=== PATIENT | female | born 1995 | race Caucasian/White ===

== ENCOUNTER 2017-06-06 10:25 | Inpatient (IN) ==
[2017-06-06] MEDS ORDERED: Pantoprazole 40 MG VIAL IVP ONE (11:12)
[2017-06-06] MEDS ORDERED: *HR* HYDROmorphone (PF) 1 MG/ML SYRINGE IVP ONE ×3 (11:14→18:43)
[2017-06-06] MEDS ORDERED: methylPREDNISolone 125 MG/2 ML VIAL IVP ONE (11:14)
[2017-06-06] MEDS ORDERED: 0.9 % Sodium Chloride 1,000 ML IVC ONE (11:14)
[2017-06-06] MEDS ORDERED: Ondansetron 4 MG/2 ML VIAL IVP PRN ×3 (11:15→19:30)
--- NOTE | 2017-06-06 11:23 | Emergency Department Note ---
Disposition Clinical Impression: Pleuritic chest pain, RUQ abdominal pain, Splenic infarction GI bleed Qualifiers: GI bleed type/associated pathology: unspecified gastrointestinal hemorrhage type Qualified Code(s): K92.2 - Gastrointestinal hemorrhage, unspecified Disposition: Admitted As Inpatient Condition: Serious Time of Disposition: 20:42 Chest Pain HPI - General Chief Complaint: ED Chest Pain Stated Complaint: chest/abd pain Time Seen by Provider: 06/06/17 10:57 Source: patient Limitations: no limitations Vital Signs Reviewed: Yes Nursing Notes Reviewed: Yes - History of Present Illness HPI Narrative: Patient's a 21-year-old female history of antiphospholipid syndrome, previous DVTs, and has an IVC filter in place back in 2013. Patient has IVC filter replacement secondary to complete blockage of the first filter. Patient has of right upper quadrant pain difficulty breathing pain with inspiration, coffee- ground emesis. Patient states she had the same symptoms back in 2013 when her filter was clogged up. Patient has nausea vomiting and has not eaten in 3 days. Patient vomiting up to 4 times a day. Patient reports no bloody stools dark tarry stools. Patient denies any urinary symptoms of dysuria Severity scale (1-10): 9 - Related Data Home Medications Medication Instructions Recorded Confirmed Albuterol Sulfate [Albuterol 2 puff IH Q6HR PRN 03/18/17 06/06/17 Inhaler] Levothyroxine [Levothyroxine 137 mcg PO HS 03/18/17 06/06/17 Sodium] Paroxetine HCl [Paxil] 40 mg PO HS 03/18/17 06/06/17 Quetiapine Fumarate [Seroquel] 1,200 mg PO HS 03/18/17 06/06/17 Warfarin [Coumadin] 5 mg PO HS 03/18/17 06/06/17 Zolpidem [Ambien] 10 mg PO HS 03/18/17 06/06/17 cloNIDine HCl [CloNIDine HCl] 0.1 mg PO HS 03/18/17 06/06/17 Previous Rx's Medication Instructions Recorded Pantoprazole Sodium [Protonix] 20 mg PO DAILY #30 tab 04/05/17 Allergies Allergy/AdvReac Type Severity Reaction Status Date / Time Enoxaparin [From Lovenox] Allergy Rash Verified 06/06/17 10:35 fentanyl Allergy Itching Verified 06/06/17 10:35 fondaparinux [From Arixtra] Allergy Anaphylaxis Verified 06/06/17 10:35 hydrocodone Allergy Anaphylaxis Verified 06/06/17 10:35 ketorolac [From Toradol] Allergy Anaphylaxis Verified 06/06/17 10:35 Oxycodone Allergy Anaphylaxis Verified 06/06/17 10:35 tramadol Allergy Anaphylaxis Verified 06/06/17 10:35 Review of Systems: Patient admits to lightheadedness nausea, vomiting no diarrhea. Patient denies falls, loss of consciousness, vision changes All systems ED: reviewed and negative except as stated. 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 Patient sitting up in bed and able to speak without any conversational dyspnea. Patient is on for diaphoretic - General Limitations: no limitations General appearance: alert, in no apparent distress - Head Head exam: atraumatic, normocephalic, normal inspection - Eye Eye exam: Present: normal appearance, PERRL, EOMI - ENT ENT exam: normal exam, normal oropharynx, mucous membranes moist - Neck Neck exam: Present: normal inspection, full ROM, trachea midline - Chest Chest inspection: Present: normal inspection, symmetric chest wall rise - Respiratory Respiratory exam: Present: normal lung sounds bilaterally - Cardiovascular Cardiovascular exam: Present: normal rhythm, tachycardia, normal heart sounds - Abdominal Exam Abdominal exam: Present: soft, tenderness, Henry's sign. Absent: distention, guarding, rebound, rigidity Abdominal tenderness: Present: RUQ - Extremities Exam Extremities exam: Present: normal inspection, full ROM. Absent: tenderness, pedal edema - Expanded Lower Extremity Exam Hip/Pelvis exam: Present: normal inspection, full ROM Upper leg exam: Present: normal inspection, full ROM Knee exam: Present: normal inspection, full ROM Lower leg exam: Present: normal inspection, full ROM Ankle exam: Present: normal inspection, full ROM Foot/toe exam: Present: normal inspection, full ROM Neurovascular/Tendon exam: Absent: motor deficit, sensory deficit, tendon deficit - Back Exam Back exam: Present: normal inspection, full ROM. Absent: tenderness, CVA tenderness (R), CVA tenderness (L), vertebral tenderness - Neurological Exam Neurological exam: Present: alert, oriented X3, CN II-XII intact - Psychiatric Psychiatric exam: Present: normal affect, normal mood - Skin Skin exam: Present: warm, dry, intact, normal color. Absent: rash, cyanosis, diaphoresis, erythema, pallor, mottled Course - Reevaluation(s) Reevaluation #1: CTA chest, CT abdomen and pelvis, CBC, BMP, LFTs, lipase, lactate ordered type and screen ordered IV normal saline, Zofran and Dilaudid and 40 mg protonics Time: 11:14 Reevaluation #2: PICC line ordered. Patient refused intramuscular medications. She states she was with her PICC line. Patient's vital signs are stable. Mildly tachycardic just over 100. Time: 13:42 Reevaluation #3: still awaiting callback from PICC team before patient is able to get the necessary advanced imaging CTA chest and abdomen Time: 14:40 Additional Reevaluation(s): 1506: PICC team called back finally and states they will be down in 15 min. 1605: Patient finally has PICC line in left upper arm medial aspect. Patient's med service started. Patient's IV fluids were started. Patient will be going on the CT shortly - Consultations Consultation #1: Accepted for Admission by Sridevi Mancuso the hospitalist Time: 18:30 Vital Signs Temperature 98.1 F 06/06/17 10:28 Pulse Rate 106 06/06/17 10:28 Respiratory Rate 16 06/06/17 10:28 Blood Pressure 121/79 06/06/17 10:28 O2 Sat by Pulse Oximetry 98 06/06/17 10:28 Temperature 98.1 F 06/06/17 10:28 Pulse Rate 102 06/06/17 20:48 Respiratory Rate 16 06/06/17 20:48 Blood Pressure 142/78 06/06/17 20:48 O2 Sat by Pulse Oximetry 98 06/06/17 20:48 Oxygen Delivery Oxygen Delivery Room Air Chest Pain - MDM Narrative Medical decision making narrative: Differential for PE, PTX, right upper quadrant pain for cholecystitis, PUD, IVC filter clog. CT abdomen and pelvis, CT of chest was completed. No PE. CT and pelvis showed splenic infarct. Patient has intractable abdominal pain. Patient's had multiple bouts of Dilaudid 1 mg doses and has brought her pain only down to 8/ 10. Patient has nausea resistant to Zofran was placed on Phenergan. Patient is subtherapeutic on Coumadin. Heparin bolus ordered and drip started. Patient accepts this is an for admission. Patient is accepted for admission - Differential Diagnosis Likely: atypical chest pain, chest pain - Lab Data Lab results reviewed: Yes I reviewed the patient's lab results. Lab results narrative: Short CBC 06/06/17 Range/Units 12:44 WBC 4.1 L (4.3-11.1) K/mcL Hgb 10.0 L (11.5-15.4) g/dL Hct 31.9 L (35.3-44.9) % Plt Count 82 L (140-400) K/mcL Neutrophils # 2.7 (1.6-8.9) K/mcL BMP 06/06/17 Range/Units 12:44 Sodium 137 (136-145) mEq/L Potassium 3.7 (3.5-4.5) mEq/L Chloride 107 (98-109) mEq/L Carbon Dioxide 18 L (19-29) mEq/L BUN 8 (7-20) mg/dL Creatinine 0.82 (0.57-1.11) mg/dL Glucose 89 (70-99) mg/dL Calcium 9.4 (8.6-10.8) mg/dL Cardiac Enzymes 06/06/17 Range/Units 12:44 Troponin I 0.00 (0-0.03) ng/mL Liver Function 06/06/17 Range/Units 12:44 Total Bilirubin 0.3 (0.2-1.2) mg/dL Direct Bilirubin < 0.1 (0.0-0.5) mg/dL AST 15 (5-34) Units/L ALT 16 (0-55) Units/L Alkaline Phosphatase 75 (38-126) Units/L Albumin 3.7 (3.5-5.0) g/dL Urine 06/06/17 Range/Units 11:31 Urine Color Yellow (Yellow) Urine Clarity Cloudy A (Clear) Urine pH 5.5 (5.0-8.0) pH Units Ur Specific [place] 1.024 (1.010-1.025) Urine Protein Trace (Neg-Trace) mg/dL Urine Glucose (UA) Normal (Normal) mg/dL Result diagrams: 06/06/17 12:44 06/06/17 12:44 Lab Results 06/06/17 06/06/17 06/06/17 Range/Units 11:31 11:31 12:44 WBC (4.3-11.1) K/mcL RBC (3.82-4.97) M/mcL Hgb (11.5-15.4) g/dL Hct (35.3-44.9) % MCV (83.0-100.0) fL MCH (28.0-33.3) pg MCHC (31.6-35.5) g/dL RDW (11.5-14.5) % Plt Count (140-400) K/mcL MPV (9.4-12.4) fL Immature Gran % (0-4) % Seg Neutrophils % % Lymphocytes % % Monocytes % % Eosinophils % % Basophils % % Neutrophils # (1.6-8.9) K/mcL Lymphocytes # (0.6-4.6) K/mcL Monocytes # (0.0-1.3) K/mcL Eosinophils # (0.0-0.6) K/mcL Basophils # (0.0-0.2) K/mcL PT 12.9 H (9.4-12.1) Seconds INR 1.2 APTT 44.9 H (26.0-36.0) Seconds Sodium (136-145) mEq/L Potassium (3.5-4.5) mEq/L Chloride (98-109) mEq/L Carbon Dioxide (19-29) mEq/L BUN (7-20) mg/dL Creatinine (0.57-1.11) mg/dL Est GFR ( Amer) (> 60) Est GFR (Non-Af Amer) (> 60) BUN/Creatinine Ratio (6-26) Glucose (70-99) mg/dL Calculated Osmolality (280-300) Calcium (8.6-10.8) mg/dL Total Bilirubin (0.2-1.2) mg/dL Direct Bilirubin (0.0-0.5) mg/dL Indirect Bilirubin (0.0-1.2) mg/dL AST (5-34) Units/L ALT (0-55) Units/L Alkaline Phosphatase (38-126) Units/L Troponin I (0-0.03) ng/mL Serum Total Protein (6.0-8.3) g/dL Albumin (3.5-5.0) g/dL Globulin (2.4-3.5) g/dL Albumin/Globulin Ratio (1.1-2.2) Lipase (8-78) Units/L Urine Color Yellow (Yellow) Urine Clarity Cloudy A (Clear) Urine pH 5.5 (5.0-8.0) pH Units Ur Specific [place] 1.024 (1.010-1.025) Urine Protein Trace (Neg-Trace) mg/dL Urine Glucose (UA) Normal (Normal) mg/dL Urine Ketones Negative (Negative) mg/dL Urine Blood Large H (Negative) Urine Nitrite Negative (Negative) Urine Bilirubin Negative (Negative) Urine Urobilinogen Normal (Normal) mg/dL Ur Leukocyte Esterase Negative (Negative) Urine Microscopic RBC 0-3 (0-3) per hpf Urine Microscopic WBC 3-5 H (0-3) per hpf Ur Squamous Epith Cells Many H (None-Few) per lpf Urine Bacteria Moderate H (None-Few) per hpf Hyaline Casts None Seen (None-Few) per lpf Ur Culture Indicated? NO (NO) Urine Test Negative (Negative) Blood Type Antibody Screen 06/06/17 06/06/17 06/06/17 Range/Units 12:44 12:44 12:44 WBC 4.1 L (4.3-11.1) K/mcL RBC 4.09 (3.82-4.97) M/mcL Hgb 10.0 L (11.5-15.4) g/dL Hct 31.9 L (35.3-44.9) % MCV 78.0 L (83.0-100.0) fL MCH 24.4 L (28.0-33.3) pg MCHC 31.3 L (31.6-35.5) g/dL RDW 15.7 H (11.5-14.5) % Plt Count 82 L (140-400) K/mcL MPV 10.0 (9.4-12.4) fL Immature Gran % 0.5 (0-4) % Seg Neutrophils % 66.6 % Lymphocytes % 27.5 % Monocytes % 5.4 % Eosinophils % 0.0 % Basophils % 0.0 % Neutrophils # 2.7 (1.6-8.9) K/mcL Lymphocytes # 1.1 (0.6-4.6) K/mcL Monocytes # 0.2 (0.0-1.3) K/mcL Eosinophils # 0.0 (0.0-0.6) K/mcL Basophils # 0.0 (0.0-0.2) K/mcL PT (9.4-12.1) Seconds INR APTT (26.0-36.0) Seconds Sodium 137 (136-145) mEq/L Potassium 3.7 (3.5-4.5) mEq/L Chloride 107 (98-109) mEq/L Carbon Dioxide 18 L (19-29) mEq/L BUN 8 (7-20) mg/dL Creatinine 0.82 (0.57-1.11) mg/dL Est GFR ( Amer) > 60 (> 60) Est GFR (Non-Af Amer) > 60 (> 60) BUN/Creatinine Ratio 10 (6-26) Glucose 89 (70-99) mg/dL Calculated Osmolality 282 (280-300) Calcium 9.4 (8.6-10.8) mg/dL Total Bilirubin 0.3 (0.2-1.2) mg/dL Direct Bilirubin < 0.1 (0.0-0.5) mg/dL Indirect Bilirubin 0.2 (0.0-1.2) mg/dL AST 15 (5-34) Units/L ALT 16 (0-55) Units/L Alkaline Phosphatase 75 (38-126) Units/L Troponin I (0-0.03) ng/mL Serum Total Protein 7.7 (6.0-8.3) g/dL Albumin 3.7 (3.5-5.0) g/dL Globulin 4.0 H (2.4-3.5) g/dL Albumin/Globulin Ratio 0.9 L (1.1-2.2) Lipase 32 (8-78) Units/L Urine Color (Yellow) Urine Clarity (Clear) Urine pH (5.0-8.0) pH Units Ur Specific [place] (1.010-1.025) Urine Protein (Neg-Trace) mg/dL Urine Glucose (UA) (Normal) mg/dL Urine Ketones (Negative) mg/dL Urine Blood (Negative) Urine Nitrite (Negative) Urine Bilirubin (Negative) Urine Urobilinogen (Normal) mg/dL Ur Leukocyte Esterase (Negative) Urine Microscopic RBC (0-3) per hpf Urine Microscopic WBC (0-3) per hpf Ur Squamous Epith Cells (None-Few) per lpf Urine Bacteria (None-Few) per hpf Hyaline Casts (None-Few) per lpf Ur Culture Indicated? (NO) Urine Test (Negative) Blood Type O POSITIVE Antibody Screen NEGATIVE 06/06/17 Range/Units 12:44 WBC (4.3-11.1) K/mcL RBC (3.82-4.97) M/mcL Hgb (11.5-15.4) g/dL Hct (35.3-44.9) % MCV (83.0-100.0) fL MCH (28.0-33.3) pg MCHC (31.6-35.5) g/dL RDW (11.5-14.5) % Plt Count (140-400) K/mcL MPV (9.4-12.4) fL Immature Gran % (0-4) % Seg Neutrophils % % Lymphocytes % % Monocytes % % Eosinophils % % Basophils % % Neutrophils # (1.6-8.9) K/mcL Lymphocytes # (0.6-4.6) K/mcL Monocytes # (0.0-1.3) K/mcL Eosinophils # (0.0-0.6) K/mcL Basophils # (0.0-0.2) K/mcL PT (9.4-12.1) Seconds INR APTT (26.0-36.0) Seconds Sodium (136-145) mEq/L Potassium (3.5-4.5) mEq/L Chloride (98-109) mEq/L Carbon Dioxide (19-29) mEq/L BUN (7-20) mg/dL Creatinine (0.57-1.11) mg/dL Est GFR ( Amer) (> 60) Est GFR (Non-Af Amer) (> 60) BUN/Creatinine Ratio (6-26) Glucose (70-99) mg/dL Calculated Osmolality (280-300) Calcium (8.6-10.8) mg/dL Total Bilirubin (0.2-1.2) mg/dL Direct Bilirubin (0.0-0.5) mg/dL Indirect Bilirubin (0.0-1.2) mg/dL AST (5-34) Units/L ALT (0-55) Units/L Alkaline Phosphatase (38-126) Units/L Troponin I 0.00 (0-0.03) ng/mL Serum Total Protein (6.0-8.3) g/dL Albumin (3.5-5.0) g/dL Globulin (2.4-3.5) g/dL Albumin/Globulin Ratio (1.1-2.2) Lipase (8-78) Units/L Urine Color (Yellow) Urine Clarity (Clear) Urine pH (5.0-8.0) pH Units Ur Specific [place] (1.010-1.025) Urine Protein (Neg-Trace) mg/dL Urine Glucose (UA) (Normal) mg/dL Urine Ketones (Negative) mg/dL Urine Blood (Negative) Urine Nitrite (Negative) Urine Bilirubin (Negative) Urine Urobilinogen (Normal) mg/dL Ur Leukocyte Esterase (Negative) Urine Microscopic RBC (0-3) per hpf Urine Microscopic WBC (0-3) per hpf Ur Squamous Epith Cells (None-Few) per lpf Urine Bacteria (None-Few) per hpf Hyaline Casts (None-Few) per lpf Ur Culture Indicated? (NO) Urine Test (Negative) Blood Type Antibody Screen - Radiology Data Radiology results reviewed: Yes I reviewed the patient's radiology results. Chest X-Ray 06/06/17 11:12 IMPRESSION: No significant findings in the chest. D/ / Ihsan Hillman MD / Ihsan Hillman MD Interpreting Provider: Ihsan Hillman MD Chest CTA 06/06/17 11:13 IMPRESSION: No evidence of pulmonary embolism or acute pulmonary abnormality. D/ / Zia Mcmahon MD / Zia Mcmahon MD Interpreting Provider: Zia Mcmahon MD Abdomen/Pelvis CT 06/06/17 11:17 IMPRESSION: 1. Low attenuation seen in the medial aspect of the spleen may be related to a splenic infarct 2. Otherwise, no acute abnormalities seen in the abdomen or pelvis 3. Normal appearing appendix 4. No urinary tract stones 5. IVC filter in place D/ / 06/06/2017 16:49:22 Zia Mcmahon MD / [facility] Interpreting Provider: Zia Mcmahon MD - EKG Data EKG attestation: Yes I reviewed and interpreted this EKG. EKG results narrative: EKG taken at 06 jun 2017 1122 hrs. hr 0f 102 shows a sinus tachycardia no acute ST elevations or depressions in any leads. No gross widening of the to prolongation. no S1Q3T3, NO BRUGADA, scarbosa, or wellens. Previous EKG for comparison taken 03/18/2017 also shows sinus tachycardia at a rate of [address] elevations or depressions any leads both EKGs show T-wave inversion in leads V1 through V4. Heart Score - Score History: Slightly Suspicious EKG: Non Specific repolarisation Disturbance Age: Less than 45 Risk Factors: 1-2 risk factors Troponin: Less than normal limit HEART Score Total: 2 Critical Care Time Critical Care Time: Yes Total Critical Care Time: 35 Attestation: Critical care time 35 minutes. Attestation Statement - Attestation Attestation: Patient was seen with resident physician. I reviewed the history, physical, assessment and plan, and agree with the findings. I also personally evaluated this patient and had [id number] time with this patient. 21-year-old female presents to the emergency department with abdominal pain radiating into her chest short of breath and hematemesis with coffee ground emesis. Patient states the pain started approximately 3 days ago. She has not been able keep anything down in that time period. She says that the pain is gotten progressively worse is large in the right upper quadrant radiating up into the chest and is associated with some mild shortness of breath. She has a history of IVC filter and she says this feels just like it did in 2014 when her IVC filter got clogged. [place] She said that was diagnosed on a CT scan of the abdomen. She denies fevers or chills. She denies chest pain insofar as she feels the abdominal pain radiating into the chest. This pain is sharp. On examination vital signs mild tachycardia. Remainder is unremarkable. ENT is unremarkable. Heart and lungs normal. Abdomen is soft there is tenderness in the right upper quadrant without guarding or rigidity. Remainder of abdominal exam is unremarkable. Neurologically is patient is intact. Extremities patient has no appreciable swelling she has no lower extremity edema that is asymmetric and no tenderness to posterior calf or thigh and on the leg. ED course Will do workup for GI bleed as well as quite neuropathy and try to determine where her abdominal pain is coming from. We will get a CTA of the chest and abdomen pelvis. We will also check labs. Anticipate will admit this patient for potential GI bleed and serial H&H's we will also control her pain and nausea. Agree with the resident physician assessment and plan. Critical care time 35 minutes.
[2017-06-06 11:44] LABS: Bilirubin,Urine Negative (Negative); Blood,Urine Large (Negative); Clarity,Urine Cloudy (Clear); Color,Urine Yellow (Yellow); Glucose,Urine (UA) Normal (Normal); Ketones,Urine Negative (Negative); Leukocyte Esterase,Urine Negative (Negative); Nitrite,Urine Negative (Negative); PH,Urine 5.5 pH Units (5.0-8.0); Protein,Urine Trace mg/dL (Neg-Trace); Specific Gravity,Urine 1.024 (1.010-1.025); Urobilinogen,Urine Normal (Normal)
[2017-06-06 11:47] LABS: Bacteria,Urine Moderate per hpf (None-Few); Hyaline Casts,Urine None Seen per lpf (None-Few); Squamous Epithelial Cell,Urine Many per lpf (None-Few)
[2017-06-06 11:57] LABS: RBC,Urine 0-3 per hpf (0-3)
[2017-06-06 12:56] LABS: Hematocrit 31.9 % (35.3-44.9); Immature Granulocytes % 0.5 % (0-4); Lymphocytes # 1.1 K/mcL (0.6-4.6); Lymphocytes % 27.5 %; Mean Corpuscular HGB Conc 31.3 g/dL (31.6-35.5); Mean Corpuscular Hemoglobin 24.4 pg (28.0-33.3); Monocytes # 0.2 K/mcL (0.0-1.3); Monocytes % 5.4 %; Neutrophils # 2.7 K/mcL (1.6-8.9); Red Blood Count 4.09 M/mcL (3.82-4.97); Red Cell Distribution Width 15.7 % (11.5-14.5); Segmented Neutrophils % 66.6 %
[2017-06-06 12:57] LABS: Platelet Count 82 K/mcL (140-400)
[2017-06-06 13:05] LABS: INR 1.2; Prothrombin Time 12.9 Seconds (9.4-12.1)
[2017-06-06 13:07] LABS: Activated Partial Thrombo Time 44.9 Seconds (26.0-36.0)
[2017-06-06] MEDS ORDERED: *HR* HYDROmorphone (PF) 1 MG/ML SYRINGE IM ONE (13:22)
[2017-06-06] MEDS ORDERED: Ondansetron ODT 4 MG TAB.RAPDIS SL ONE (13:23)
[2017-06-06 13:25] LABS: Alanine Aminotransferase 16 Units/L (0-55); Albumin 3.7 g/dL (3.5-5.0); Albumin/Globulin Ratio 0.9 (1.1-2.2); Alkaline Phosphatase 75 Units/L (38-126); Aspartate Amino Transferase 15 Units/L (5-34); BUN/Creatinine Ratio 10 (6-26); Bilirubin,Direct < 0.1 mg/dL (0.0-0.5); Bilirubin,Indirect 0.2 mg/dL (0.0-1.2); Bilirubin,Total 0.3 mg/dL (0.2-1.2); Blood Urea Nitrogen 8 mg/dL (7-20); Calcium 9.4 mg/dL (8.6-10.8); Carbon Dioxide 18 mEq/L (19-29); Chloride 107 mEq/L (98-109); Glucose 89 mg/dL (70-99); Lipase 32 Units/L (8-78); Osmolality,Calculated 282 (280-300); Potassium 3.7 mEq/L (3.5-4.5); Sodium 137 mEq/L (136-145); Total Protein 7.7 g/dL (6.0-8.3); eGFR For African Americans > 60 (> 60); eGFR For Non-African Americans > 60 (> 60)
[2017-06-06] MEDS ORDERED: *HR* Heparin 5,000 UNIT/ML VIAL IVP ONE (18:15)
[2017-06-06] MEDS ORDERED: Heparin 25,000 UNIT/500 ML D5W 25,000 UNIT/500 ML MLS IVC SCH (18:15)
[2017-06-06] MEDS ORDERED: *HR* Promethazine 25 MG/ML VIAL IVP ONE (18:43)
[2017-06-06] MEDS ORDERED: Pantoprazole 40 MG VIAL IVP SCH (19:30)
[2017-06-06] MEDS ORDERED: Acetaminophen 325 MG TABLET PO PRN (19:30)
[2017-06-06] MEDS ORDERED: Naloxone 0.4 MG/ML INJ IVP PRN (19:30)
[2017-06-06] MEDS ORDERED: 0.9 % Sodium Chloride 1,000 ML IVC SCH (19:30)
[2017-06-06] MEDS ORDERED: *HR* Morphine 2 MG/ML SYRINGE IVP PRN (19:30)
[2017-06-06] MEDS ORDERED: *HR* Warfarin 5 MG TABLET PO SCH (20:00)
[2017-06-06] MEDS ORDERED: cloNIDine HCl 0.1 MG TABLET PO SCH (21:00)
--- NOTE | 2017-06-06 21:32 | Internal Med History&Physical ---
Date of Encounter: 06/06/17 Time of Encounter: 21:00 Assessment and Plan (1) Splenic infarction Current visit: Yes Status: Acute Acute abdominal pain likely secondary to splenic infarction - secondary to antiphospholipid syndrome Continue IV heparin, continue Coumadin Morphine as needed, IV Protonix, IV Zofran as needed CT of the abdomen and CTA of the chest - reviewed H&H stable Cardiac telemetry, repeat labs in a.m., continue to monitor closely (2) Subtherapeutic anticoagulation Current visit: No Status: Acute Patient has a history of DVTs and PEs - history of IVC filter INR is subtherapeutic, will need to bridge with IV Heparin and continue Coumadin (3) Antiphospholipid antibody syndrome Current visit: No Status: Chronic History of multiple DVTs and history of PE Oncology consult (4) Drug-seeking behavior Current visit: No Status: Chronic Patient does have history of chronic drug-seeking behavior She is demanding IV pain medication with increased frequency and increased dosage (5) Medical non-compliance Current visit: No Status: Chronic History of chronic medical noncompliance Recent has not been taking any of her medications including Coumadin for the past few days at least Patient has been rude and abrasive with medical staff and threatening to leave AGAINST MEDICAL ADVICE Internal Medicine - H&P: HPI Chief complaint: Abdominal pain, chest pain Admitted From: Emergency Dept Plans for Post Hospital Care: Home History of present illness: Ms. Altamirano is a 21 year old female with past medical history of antiphospholipid syndrome, lupus, DVT, history of PE, bipolar disorder and anxiety. Patient presents ED with complaints of abdominal pain and chest pain. Examined in the room. Patient is awake and alert. Not in any distress. Able to provide history. Some family members at bedside. Patient states she developed abdominal pain and vomiting about 2-3 days ago. She states she had some coffee-ground emesis. Denies diarrhea or blood in stool. States her abdominal pain is constant and describes it as sharp pain. She has had a splenic infarct in the past, and decided to come to ER today. Pain seems to be mainly in the left upper quadrant. She wakes at 9 out of 10. No aggravating or alleviating factors. She also complains of mild associated chest pain. Denies shortness of breath. No other associated symptoms. Initial workup in the ED reveals subtherapeutic INR and splenic infarct. IVC filter is in place and CT angio of the chest is negative for PE. H&H is stable. No active bleeding. She will need to be on IV heparin. We will continue all home medications. Patient is being admitted for splenic infarct and subtherapeutic INR. Oncology consult pending. CODE STATUS full code. Patient has been demanding IV pain medication. She has been abrasive with all medical staff. She is already threatening to leave AGAINST MEDICAL ADVICE. Patient states she has not been taking any of her medications for the past few days at least. Past Med Surg Social Fam HX - Past Medical History Medical history: asthma, pulmonary embolus, thyroid disease, other Psychiatric history: no psych history - Past Surgical History Surgical History: , orthopedic, other (right foot), IVC filter - Social History Smoking Status: Never smoker Smokeless Tobacco Status: No Alcohol use: none Drug use: none - Family History Mother Living Status: Still Living Hx Family Cardiac Disorders: Yes (CVA, HTN) Father Living Status: Still Living Hx Family Cardiac Disorders: Yes Internal Medicine - H&P: Meds Albuterol Sulfate [Albuterol Inhaler] 2 puff IH Q6HR PRN 03/18/17 [History] Levothyroxine [Levothyroxine Sodium] 137 mcg PO HS 03/18/17 [History] Paroxetine HCl [Paxil] 40 mg PO HS 03/18/17 [History] Quetiapine Fumarate [Seroquel] 1,200 mg PO HS 03/18/17 [History] Warfarin [Coumadin] 5 mg PO HS 03/18/17 [History] Zolpidem [Ambien] 10 mg PO HS 03/18/17 [History] cloNIDine HCl [CloNIDine HCl] 0.1 mg PO HS 03/18/17 [History] Pantoprazole Sodium [Protonix] 20 mg PO DAILY #30 tab 04/05/17 [Rx] 3 Allergy/AdvReac Type Severity Reaction Status Date / Time Enoxaparin [From Lovenox] Allergy Rash Verified 06/06/17 10:35 fentanyl Allergy Itching Verified 06/06/17 10:35 fondaparinux [From Arixtra] Allergy Anaphylaxis Verified 06/06/17 10:35 hydrocodone Allergy Anaphylaxis Verified 06/06/17 10:35 ketorolac [From Toradol] Allergy Anaphylaxis Verified 06/06/17 10:35 Oxycodone Allergy Anaphylaxis Verified 06/06/17 10:35 tramadol Allergy Anaphylaxis Verified 06/06/17 10:35 All Systems PM: A 10-system review of systems was performed and is negative for pertinent findings except as documented above in the HPI. - Constitutional Constitutional: no fatigue, no fever(s), no weakness - EENT Eyes: no blurry vision - Cardiovascular Cardiovascular ROS IM: chest pain, no diaphoresis, no dyspnea, no dyspnea on exertion, no edema, no lightheadedness, no orthopnea, no syncope - Respiratory Respiratory: no cough, no dyspnea, no hemoptysis, no dyspnea on exertion, no wheezing, no chest congestion - Gastrointestinal Gastrointestinal: abdominal pain, hematemesis, nausea, vomiting, no bloating, no constipation, no cramping, no diarrhea, no heartburn, no hematochezia, no melena - Genitourinary Genitourinary: no dysuria - Musculoskeletal Musculoskeletal ROS IM: no back pain - Neurological Neurological ROS: no abnormal gait, no confusion, no convulsions, no dizziness, no numbness, no tingling - Constitutional Vitals: Temp Pulse Resp BP Pulse Ox 98.1 F 102 16 142/78 98 06/06/17 10:28 06/06/17 20:48 06/06/17 20:48 06/06/17 20:48 06/06/17 20:48 General appearance: Present: A&O X 3, morbidly obese, no acute distress, answers questions appropriately. Absent: cooperative - Head Head exam: Present: atraumatic - Eye Eye exam: Present: EOMI - ENT ENT exam: Present: mucous membranes dry - Respiratory Respiratory exam: Present: CTAB. Absent: rales, rhonchi, wheezes, tachypnea - Cardiovascular Cardiovascular exam: Present: RRR, +S1, +S2 - GI/Abdominal GI/Abdominal exam: Present: soft, tenderness (Left upper quadrant). Absent: distended, firm, guarding - Extremities Exam Extremities exam: Present: radial pulses palpable and symmetrical. Absent: calf tenderness, cyanotic, pedal edema - Neurological Exam Neurological exam: Present: alert, oriented X3, no focal deficits. Absent: facial droop, speech deficit Internal Med - H&P Results - Labs CBC & Chem 7: 06/06/17 12:44 06/06/17 12:44
[2017-06-06 21:36] VITALS: BP 134/99
--- NOTE | 2017-06-06 21:42 | Discharge Summary ---
Date of Encounter: 06/06/17 Time of Encounter: 21:30 - Discharge Diagnosis (1) Splenic infarction Priority: Primary Status: Acute (2) Subtherapeutic anticoagulation Priority: Primary Status: Acute (3) Antiphospholipid antibody syndrome Priority: Primary Status: Chronic (4) Drug-seeking behavior Priority: Primary Status: Chronic (5) Medical non-compliance Priority: Primary Status: Chronic - Discharge Medications Home Medications: Albuterol Sulfate [Albuterol Inhaler] 2 puff IH Q6HR PRN 03/18/17 [History] Levothyroxine [Levothyroxine Sodium] 137 mcg PO HS 03/18/17 [History] Paroxetine HCl [Paxil] 40 mg PO HS 03/18/17 [History] Quetiapine Fumarate [Seroquel] 1,200 mg PO HS 03/18/17 [History] Warfarin [Coumadin] 5 mg PO HS 03/18/17 [History] Zolpidem [Ambien] 10 mg PO HS 03/18/17 [History] cloNIDine HCl [CloNIDine HCl] 0.1 mg PO HS 03/18/17 [History] Pantoprazole Sodium [Protonix] 20 mg PO DAILY #30 tab 04/05/17 [Rx] Allergies/Adverse Reactions: 3 Allergy/AdvReac Type Severity Reaction Status Date / Time Enoxaparin [From Lovenox] Allergy Rash Verified 06/06/17 10:35 fentanyl Allergy Itching Verified 06/06/17 10:35 fondaparinux [From Arixtra] Allergy Anaphylaxis Verified 06/06/17 10:35 hydrocodone Allergy Anaphylaxis Verified 06/06/17 10:35 ketorolac [From Toradol] Allergy Anaphylaxis Verified 06/06/17 10:35 Oxycodone Allergy Anaphylaxis Verified 06/06/17 10:35 tramadol Allergy Anaphylaxis Verified 06/06/17 10:35 Date of admission: 06/06/17 19:30 Primary care physician: PCP NONE Consults: 06/06/17 19:36 Consult to Oncology [CONS] Routine Consulting Provider: [facility] Reason for Consult: antiphospholipid syndrome Call Completed: No 06/06/17 21:03 Consult to Invasive Line Access Team [CONS] Routine Reason for Consult: limited vascular access Line Type: EPIV Anticipated date of discharge: 06/06/17 - Patient Status Disposition: Left Against Medical Advice Condition: Serious Overall status at discharge: patient is not back to baseline - Discharge Instructions Follow Up With: NONE,PCP [Primary Care Provider] - - Diet and Activity Activity: increase activity as tolerated Diet: advance to your usual diet Hospital course: Ms. Altamirano is a 21 year old female with past medical history of antiphospholipid syndrome, and history of DVTs, history of PEs, lupus and anxiety and bipolar disorder. Patient was admitted for subtherapeutic INR and abdominal pain secondary to splenic infarct. She was started on IV heparin and continued on all home medications. Patient had been demanding IV medication. She has also been very aggressive with all medical staff. Patient did have an argument with the family members in the room. She has now left AGAINST MEDICAL ADVICE. - Time Spent with Patient Total time spent providing and/or coordinating discharge services: Less than 30 minutes - Constitutional Vitals: Temp Pulse Resp BP Pulse Ox 98 F 116 20 134/99 95 06/06/17 21:00 06/06/17 21:00 06/06/17 21:00 06/06/17 21:00 06/06/17 21:00 General appearance: Present: A&O X 3, morbidly obese, no acute distress, answers questions appropriately. Absent: cooperative - Head Head exam: Present: atraumatic - Eye Eye exam: Present: EOMI - ENT ENT exam: Present: mucous membranes dry - Respiratory Respiratory exam: Present: CTAB. Absent: rales, rhonchi, wheezes, tachypnea - Cardiovascular Cardiovascular exam: Present: RRR, +S1, +S2 - GI/Abdominal GI/Abdominal exam: Present: soft, tenderness (Left upper quadrant). Absent: distended, firm, guarding - Extremities Exam Extremities exam: Present: radial pulses palpable and symmetrical. Absent: calf tenderness, cyanotic, pedal edema - Neurological Exam Neurological exam: Present: alert, oriented X3, no focal deficits. Absent: facial droop, speech deficit
--- NOTE | 2017-06-07 09:58 | Electrocardiograph Report ---
[facility] Test Date: 2017-06-06 Pat Name: Nika Altamirano Department: 103 Room: 2NE23 Gender: F [employer]: : 1995 Requested By: Kervin Paulson Order Number: [id number] Reading MD: Clarissa Hilario DO Measurements Intervals [place] Rate: 105 P: 23 VA: 150 QRS: 15 QRSD: 89 T: 64 QT: 290 QTc: 351 Interpretive Statements SINUS TACHYCARDIA NONSPECIFIC T-WAVE ABNORMALITY ABNORMAL RHYTHM ECG Electronically Signed On 06-07-2017 9:57:17 EDT by Clarissa Hilario DO
== END 2017-06-06 21:35 | disposition left against medical advice (07) | DRG 815 ==
LOC: EMEROO 10:25 → 2NENU 10:25
PROVIDERS: ADMIT Nurse Practitioner Family; ATTEND Internal Medicine

== ENCOUNTER 2018-05-21 09:17 | Inpatient (IN) ==
[2018-05-21] MEDS ORDERED: Piperacillin/Tazobactam 3.375 GM in Water for inj. (sterile) 20 ML 20 ML IVP ONE (09:57)
--- NOTE | 2018-05-21 10:19 | Emergency Department Note ---
Disposition Clinical Impression: Endocarditis Qualifiers: Endocarditis type: infective Infective endocarditis organism: unspecified organism Chronicity: unspecified Qualified Code(s): I33.0 - Acute and subacute infective endocarditis Disposition: Admitted As Inpatient Referrals: NONE,PCP [Primary Care Provider] - Forms: ED Satisfaction Letter General Adult HPI - General Chief complaint: ED Chest Pain Stated complaint: CP, SOB, fever Time Seen by Provider: 05/21/18 09:24 Source: patient, family Limitations: no limitations - History of Present Illness Pain Scale: 8 - Related Data Home Medications Medication Instructions Recorded Confirmed Albuterol Sulfate [Albuterol 2 puff IH Q6HR PRN 03/18/17 05/21/18 Inhaler] Quetiapine Fumarate [Seroquel] 1,200 mg PO HS 03/18/17 05/21/18 Warfarin [Coumadin] 10 mg PO DAILY 03/18/17 05/21/18 Zolpidem [Ambien] 10 mg PO HS 03/18/17 05/21/18 Levothyroxine [Levothyroxine 137 mcg PO DAILY 05/21/18 05/21/18 Sodium] Sertraline [Zoloft] 150 mg PO DAILY 05/21/18 05/21/18 Allergies Allergy/AdvReac Type Severity Reaction Status Date / Time Enoxaparin [From Lovenox] Allergy Rash Verified 05/21/18 09:22 fentanyl Allergy Itching Verified 05/21/18 09:22 fondaparinux [From Arixtra] Allergy Anaphylaxis Verified 05/21/18 09:22 hydrocodone Allergy Anaphylaxis Verified 05/21/18 09:22 ketorolac [From Toradol] Allergy Anaphylaxis Verified 05/21/18 09:22 Oxycodone Allergy Anaphylaxis Verified 05/21/18 09:22 tramadol Allergy Anaphylaxis Verified 05/21/18 09:22 Past Medical History - Past Medical History Medical history: Reports: asthma, pulmonary embolus, thyroid disease, other Surgical history: Reports: , orthopedic, other (right foot), IVC filter Psychiatric history: Reports: no psych history FIRE PATROL history: Reports: no FIRE PATROL history - Social History Smoking Status: Never smoker Smokeless Tobacco Status: No Alcohol use: Reports: none Drug use: Reports: none Physical Exam - General Limitations: no limitations General appearance: alert, in no apparent distress Course Vital Signs Temperature 98 F 05/21/18 09:20 Pulse Rate 112 05/21/18 09:20 Respiratory Rate 16 05/21/18 09:20 Blood Pressure 137/92 05/21/18 09:20 O2 Sat by Pulse Oximetry 100 05/21/18 09:20 Temperature 98 F 05/21/18 09:32 Pulse Rate 102 05/21/18 09:32 Respiratory Rate 18 05/21/18 09:32 Blood Pressure 147/11 05/21/18 09:32 O2 Sat by Pulse Oximetry 99 05/21/18 09:32 Oxygen Delivery Oxygen Delivery Room Air Medical Decision Making - Lab Data Result diagrams: 05/21/18 13:43 05/21/18 13:43 Lab Results 05/21/18 05/21/18 05/21/18 Range/Units 10:38 10:46 10:50 WBC (4.3-11.1) K/mcL RBC (3.82-4.97) M/mcL Hgb (11.5-15.4) g/dL Hct (35.3-44.9) % MCV (83.0-100.0) fL MCH (28.0-33.3) pg MCHC (31.6-35.5) g/dL RDW (11.5-14.5) % Plt Count (140-400) K/mcL MPV (9.4-12.4) fL Immature Gran % (0-4) % Seg Neutrophils % % Lymphocytes % % Monocytes % % Eosinophils % % Basophils % % Neutrophils # (1.6-8.9) K/mcL Lymphocytes # (0.6-4.6) K/mcL Monocytes # (0.0-1.3) K/mcL Eosinophils # (0.0-0.6) K/mcL Basophils # (0.0-0.2) K/mcL PT (9.4-12.1) Seconds INR APTT (26.0-36.0) Seconds ABG pH 7.40 (7.32-7.45) pH Units ABG pCO2 39 (35-45) mmHg ABG pO2 88 (85-104) mmHg ABG HCO3 24 (21-27) mEq/L ABG Total CO2 26 (20-26) mEq/L ABG O2 Saturation 97 (95-98) % ABG Base Excess 0 (-2 to 3) mEq/L O2 Delivery Device Room Air Sodium (136-145) mEq/L Potassium (3.5-5.1) mEq/L Chloride (98-107) mEq/L Carbon Dioxide (23-29) mEq/L BUN (6-20) mg/dL Creatinine (0.60-1.20) mg/dL Est GFR ( Amer) (> 60) Est GFR (Non-Af Amer) (> 60) BUN/Creatinine Ratio (6-26) Glucose (70-105) mg/dL Calculated Osmolality (280-300) Lactic Acid (0.5-2.2) mmol/L Calcium (8.6-10.3) mg/dL Phosphorus (2.7-4.5) mg/dL Magnesium (1.6-2.6) mg/dL Total Bilirubin (0.3-1.0) mg/dL Direct Bilirubin (0.0-0.2) mg/dL Indirect Bilirubin (0.0-1.2) mg/dL AST (13-39) Units/L ALT (7-52) Units/L Alkaline Phosphatase (34-104) Units/L Troponin I (< 0.04) ng/mL Serum Total Protein (6.4-8.9) g/dL Albumin (3.5-5.7) g/dL Globulin (2.4-3.5) g/dL Albumin/Globulin Ratio (1.1-2.2) Ur Specimen Adequacy See below A Urine Color [place] A (Yellow) Urine Clarity Cloudy A (Clear) Urine pH 6.0 (5.0-8.0) pH Units Ur Specific [place] 1.029 H (1.010-1.025) Urine Protein Trace (Neg-Trace) mg/dL Urine Glucose (UA) Normal (Normal) mg/dL Urine Ketones Trace H (Negative) mg/dL Urine Blood Negative (Negative) Urine Nitrite Negative (Negative) Urine Bilirubin Small H (Negative) Urine Urobilinogen Normal (Normal) mg/dL Ur Leukocyte Esterase Small H (Negative) Urine Microscopic WBC 3-5 H (0-3) per hpf Ur Squamous Epith Cells Many H (None-Few) per lpf Calcium Oxalate Crystal Present Urine Bacteria Many H (None-Few) per hpf Urine Mucus Many H (Few) Ur Culture Indicated? NO. A (NO) Urine Test Negative (Negative) Ur Drug Screen Interp 05/21/18 05/21/18 05/21/18 Range/Units 13:43 13:43 13:43 WBC 5.1 (4.3-11.1) K/mcL RBC 3.93 (3.82-4.97) M/mcL Hgb 9.6 L (11.5-15.4) g/dL Hct 30.7 L (35.3-44.9) % MCV 78.1 L (83.0-100.0) fL MCH 24.4 L (28.0-33.3) pg MCHC 31.3 L (31.6-35.5) g/dL RDW 14.7 H (11.5-14.5) % Plt Count 108 L (140-400) K/mcL MPV 10.1 (9.4-12.4) fL Immature Gran % 0.6 (0-4) % Seg Neutrophils % 68.4 % Lymphocytes % 25.9 % Monocytes % 4.9 % Eosinophils % 0.0 % Basophils % 0.2 % Neutrophils # 3.5 (1.6-8.9) K/mcL Lymphocytes # 1.3 (0.6-4.6) K/mcL Monocytes # 0.3 (0.0-1.3) K/mcL Eosinophils # 0.0 (0.0-0.6) K/mcL Basophils # 0.0 (0.0-0.2) K/mcL PT 13.7 H (9.4-12.1) Seconds INR 1.2 APTT 55.5 H (26.0-36.0) Seconds ABG pH (7.32-7.45) pH Units ABG pCO2 (35-45) mmHg ABG pO2 (85-104) mmHg ABG HCO3 (21-27) mEq/L ABG Total CO2 (20-26) mEq/L ABG O2 Saturation (95-98) % ABG Base Excess (-2 to 3) mEq/L O2 Delivery Device Sodium 139 (136-145) mEq/L Potassium 3.6 (3.5-5.1) mEq/L Chloride 107 (98-107) mEq/L Carbon Dioxide 24 (23-29) mEq/L BUN 8 (6-20) mg/dL Creatinine 0.85 (0.60-1.20) mg/dL Est GFR ( Amer) > 60 (> 60) Est GFR (Non-Af Amer) > 60 (> 60) BUN/Creatinine Ratio 9 (6-26) Glucose 87 (70-105) mg/dL Calculated Osmolality 286 (280-300) Lactic Acid (0.5-2.2) mmol/L Calcium 8.9 (8.6-10.3) mg/dL Phosphorus 2.8 (2.7-4.5) mg/dL Magnesium 1.7 (1.6-2.6) mg/dL Total Bilirubin 0.4 (0.3-1.0) mg/dL Direct Bilirubin 0.0 (0.0-0.2) mg/dL Indirect Bilirubin 0.4 (0.0-1.2) mg/dL AST 11 L (13-39) Units/L ALT 9 (7-52) Units/L Alkaline Phosphatase 63 (34-104) Units/L Troponin I < 0.03 (< 0.04) ng/mL Serum Total Protein 6.6 (6.4-8.9) g/dL Albumin 4.0 (3.5-5.7) g/dL Globulin 2.6 (2.4-3.5) g/dL Albumin/Globulin Ratio 1.5 (1.1-2.2) Ur Specimen Adequacy Urine Color (Yellow) Urine Clarity (Clear) Urine pH (5.0-8.0) pH Units Ur Specific [place] (1.010-1.025) Urine Protein (Neg-Trace) mg/dL Urine Glucose (UA) (Normal) mg/dL Urine Ketones (Negative) mg/dL Urine Blood (Negative) Urine Nitrite (Negative) Urine Bilirubin (Negative) Urine Urobilinogen (Normal) mg/dL Ur Leukocyte Esterase (Negative) Urine Microscopic WBC (0-3) per hpf Ur Squamous Epith Cells (None-Few) per lpf Calcium Oxalate Crystal Urine Bacteria (None-Few) per hpf Urine Mucus (Few) Ur Culture Indicated? (NO) Urine Test (Negative) Ur Drug Screen Interp 05/21/18 05/21/18 Range/Units 13:43 17:25 WBC (4.3-11.1) K/mcL RBC (3.82-4.97) M/mcL Hgb (11.5-15.4) g/dL Hct (35.3-44.9) % MCV (83.0-100.0) fL MCH (28.0-33.3) pg MCHC (31.6-35.5) g/dL RDW (11.5-14.5) % Plt Count (140-400) K/mcL MPV (9.4-12.4) fL Immature Gran % (0-4) % Seg Neutrophils % % Lymphocytes % % Monocytes % % Eosinophils % % Basophils % % Neutrophils # (1.6-8.9) K/mcL Lymphocytes # (0.6-4.6) K/mcL Monocytes # (0.0-1.3) K/mcL Eosinophils # (0.0-0.6) K/mcL Basophils # (0.0-0.2) K/mcL PT (9.4-12.1) Seconds INR APTT (26.0-36.0) Seconds ABG pH (7.32-7.45) pH Units ABG pCO2 (35-45) mmHg ABG pO2 (85-104) mmHg ABG HCO3 (21-27) mEq/L ABG Total CO2 (20-26) mEq/L ABG O2 Saturation (95-98) % ABG Base Excess (-2 to 3) mEq/L O2 Delivery Device Sodium (136-145) mEq/L Potassium (3.5-5.1) mEq/L Chloride (98-107) mEq/L Carbon Dioxide (23-29) mEq/L BUN (6-20) mg/dL Creatinine (0.60-1.20) mg/dL Est GFR ( Amer) (> 60) Est GFR (Non-Af Amer) (> 60) BUN/Creatinine Ratio (6-26) Glucose (70-105) mg/dL Calculated Osmolality (280-300) Lactic Acid 0.6 (0.5-2.2) mmol/L Calcium (8.6-10.3) mg/dL Phosphorus (2.7-4.5) mg/dL Magnesium (1.6-2.6) mg/dL Total Bilirubin (0.3-1.0) mg/dL Direct Bilirubin (0.0-0.2) mg/dL Indirect Bilirubin (0.0-1.2) mg/dL AST (13-39) Units/L ALT (7-52) Units/L Alkaline Phosphatase (34-104) Units/L Troponin I (< 0.04) ng/mL Serum Total Protein (6.4-8.9) g/dL Albumin (3.5-5.7) g/dL Globulin (2.4-3.5) g/dL Albumin/Globulin Ratio (1.1-2.2) Ur Specimen Adequacy Urine Color (Yellow) Urine Clarity (Clear) Urine pH (5.0-8.0) pH Units Ur Specific [place] (1.010-1.025) Urine Protein (Neg-Trace) mg/dL Urine Glucose (UA) (Normal) mg/dL Urine Ketones (Negative) mg/dL Urine Blood (Negative) Urine Nitrite (Negative) Urine Bilirubin (Negative) Urine Urobilinogen (Normal) mg/dL Ur Leukocyte Esterase (Negative) Urine Microscopic WBC (0-3) per hpf Ur Squamous Epith Cells (None-Few) per lpf Calcium Oxalate Crystal Urine Bacteria (None-Few) per hpf Urine Mucus (Few) Ur Culture Indicated? (NO) Urine Test (Negative) Ur Drug Screen Interp See Below Critical Care Time Critical Care Time: Yes Total Critical Care Time: 30 Attestation: 30 minutes of critical care time was spent with the patient with fever, tachycardia, endocarditis. Recent stopped taking antibiotics after completing a course of antibiotics. Central line placement Attestation Statement - Attestation Attestation: I examined this patient and my medical decision-making was reviewed with the MANAGEMENT DEPARTMENT CHAIR/PA/Advanced Practice Nurse/Resident Physician. I agree with the documented findings, disposition and treatment plan as described except to the extent set forth below. The patient does have a history of recent endocarditis and stopped antibiotics one month ago and now returns with temperature 104 degrees, chest pain, shortness of breath on my exam her lungs are clear with equal breath sounds and heart is regular without murmur and evaluation in progress including labs, blood cultures, lactate level, chest x-ray and antibiotics including Zosyn and vancomycin the patient will be admitted to the hospital. Very concerning story particularly vital past history. The patient is anticoagulated based on antiphospholipid syndrome 1019 I did review the patient's EKG showing sinus tachycardia with a rate of 101 and some T-wave inversion anteriorly laterally 1203 Patient did not have IV access and did have a PICC line placed but that failed and so a left IJ central line was placed and I did supervise the entire procedure and this was done in the usual sterile fashion with a catheter and gown and face mask and sterile gloves by Dr. Rosado and did have return of dark red blood. Post line chest x-ray will be ordered 1900
[2018-05-21 10:42] LABS: ABG Base Excess 0 mEq/L (-2 to 3); ABG HCO3 24 mEq/L (21-27); ABG Oxygen Saturation 97 % (95-98); ABG PCO2 39 mmHg (35-45); ABG PO2 88 mmHg (85-104); ABG TCO2 26 mEq/L (20-26)
--- NOTE | 2018-05-21 10:43 | Emergency Department Note ---
Disposition Clinical Impression: Endocarditis Qualifiers: Endocarditis type: infective Infective endocarditis organism: unspecified organism Chronicity: unspecified Qualified Code(s): I33.0 - Acute and subacute infective endocarditis Disposition: Admitted As Inpatient General Adult HPI - General Chief complaint: ED Chest Pain Stated complaint: CP, SOB, fever Time Seen by Provider: 05/21/18 09:24 Source: patient, family Mode of arrival: ambulatory Limitations: no limitations Nursing Notes Reviewed: Yes Vital Signs Reviewed: Yes - History of Present Illness HPI Narrative: Patient is a 22-year-old female with a past medical history of lupus, antiphospholipid and endocarditis presents emergency department for evaluation of chest pain, shortness of breath, fever and nausea and vomiting that has been going on for the past week. The patient states that approximately 3 weeks ago she discontinued antibiotics for endocarditis in which she is being treated at [facility]. States she completed treatment. Has been asymptomatic since that time up until one week ago. States that over the past week she has been having episodes of nausea and vomiting and yesterday she began having chest pain and shortness of breath. She states that the chest pain as left-sided with radiation around her back. States it has been constant since that time. States his symptoms are somewhat similar to when she was diagnosed with endocarditis in the past. 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 She reports a fever of 104 degrees started yesterday into today. States she also has a history of a [place] filter is currently anticoagulated. Pain Scale: 8 - Related Data Home Medications Medication Instructions Recorded Confirmed Albuterol Sulfate [Albuterol 2 puff IH Q6HR PRN 03/18/17 05/21/18 Inhaler] Quetiapine Fumarate [Seroquel] 800 mg PO HS 03/18/17 05/22/18 Warfarin [Coumadin] 10 mg PO DAILY 03/18/17 05/21/18 Zolpidem [Ambien] 10 mg PO HS 03/18/17 05/21/18 Levothyroxine [Levothyroxine 137 mcg PO DAILY 05/21/18 05/21/18 Sodium] Sertraline [Zoloft] 150 mg PO DAILY 05/21/18 05/21/18 Allergies Allergy/AdvReac Type Severity Reaction Status Date / Time Enoxaparin [From Lovenox] Allergy Rash Verified 05/21/18 09:22 fentanyl Allergy Itching Verified 05/21/18 09:22 fondaparinux [From Arixtra] Allergy Anaphylaxis Verified 05/21/18 09:22 hydrocodone Allergy Anaphylaxis Verified 05/21/18 09:22 ketorolac [From Toradol] Allergy Anaphylaxis Verified 05/21/18 09:22 Oxycodone Allergy Anaphylaxis Verified 05/21/18 09:22 tramadol Allergy Anaphylaxis Verified 05/21/18 09:22 All systems ED: reviewed and negative except as stated. Review of Systems: As Per HPI Constitutional: Reports: fever Cardiovascular: Reports: chest pain, dyspnea on exertion. Denies: palpitations , edema, syncope Respiratory: Reports: dyspnea. Denies: cough, wheezes, hemoptysis Gastrointestinal: Reports: nausea, vomiting. Denies: abdominal pain, diarrhea, constipation Genitourinary: Denies: urgency, dysuria Musculoskeletal: Denies: back pain Integumentary: Denies: rash, abrasion Neurological: Denies: headache Past Medical History - Past Medical History Attestation: Yes The following information was validated with the patient. 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 Tachycardic on exam. HEAD: Normocephalic; atraumatic. EYES: PERRL, no scleral icterus. NOSE: The nose is normal in appearance without rhinorrhea RESP: Normal chest excursion with respiration; breath sounds clear and equal bilaterally; no wheezes, rhonchi, or rales CARD: Regular rhythm, without murmurs, rub or gallop ABD: Non-distended; non-tender, soft,without rigidity, rebound or guarding SKIN: Normal for age and race; warm and dry; no apparent lesions - General Limitations: no limitations General appearance: alert, in no apparent distress Course Course Narrative: Given patient's comorbidities and recent DC'd from [facility] for endocarditis treatment plan at this time the patient undergo a workup for concerns of infection whether secondary to pulmonary ideology or recurring endocarditis. Upon further discussions with the patient she states that her last visit to clear him clinically for endocarditis initially started at a hospital in [place], [place] in which she was diagnosed with a blood clot and due to the blood thinner she is on at that time he did not feel comfortable managing the patient so she is transferred to [facility]. Given patient's comorbidities and recent DC'd from [facility] for endocarditis treatment plan at this time the patient undergo a workup for concerns of infection whether secondary to pulmonary ideology or recurring endocarditis. - Reevaluation(s) Reevaluation #1: Patient had a PICC line placed by the PICC team in the emergency department due to inability to obtain venous access. The PICC line was utilized 1 time and the second time the PICC line failed the patient on her had venous access. An IV was placed and the patient's foot due to that being the only vein appearing compatible with IV insertion. I discussed with the patient the findings of her echo which included consideration of agitation. Tricuspid valve which is consistent with the patient's history. Patient is requesting pain medication however the medication she is requesting her via IV I cannot provide her through the IV. Discussed that we need to establish a line and I will administer the patient's medications for her we also need to obtain is no blood cultures as well as initiate IV antibiotics. However, the patient remained stable at this time sitting up in bed asking if she can have a Sprite and talking on her cell phone. Time: 14:58 Reevaluation #2: The patient had a central line placed in the left IJ at approximately 18:50. At that time upon admission to the hospital patient was talking to the admitting physician and return stating that if she is not receiving Dilaudid every 4 hours and she is going to leave AMA. I discussed with the patient that her providers will determine individually what they think is best for her pain and work with her to manage her pain, it is up to the provider what they are comfortable providing with there knowledge and experience and she cannot be guaranteed a specific medication or timed dosing, but the provider will work with her to the best of their abilities for what is approriate and safe for the patient. I recommended against leaving AMA given her current condition. Discussed with the patient that she is being admitted to the hospitalist service at this time. The patient did have a CTA of her chest ordered given her history of PEs, however she is requesting to undergo a VQ scan. I discussed with her that I will be up to the hospitalist they will cancel the order for her CTA. Vital Signs Temperature 98 F 05/21/18 09:20 Pulse Rate 112 05/21/18 09:20 Respiratory Rate 16 05/21/18 09:20 Blood Pressure 137/92 05/21/18 09:20 O2 Sat by Pulse Oximetry 100 05/21/18 09:20 Temperature 97.2 F L 05/22/18 07:58 Pulse Rate 97 05/22/18 07:58 Respiratory Rate 17 05/22/18 07:58 Blood Pressure 127/76 05/22/18 07:58 O2 Sat by Pulse Oximetry 98 05/22/18 07:58 Oxygen Delivery Oxygen Delivery Room Air Procedures - Central Line Placement Left IJ Central Line Inserted*: Yes Central Line Catheter Replacement*: Yes Central Line Insertion: emergent Consent Obtained: written consent Procedural Pause: verify patient name and date of , timeout performed per policy, cristofer and assess the site, assemble equipment and verify supplies, perform hand hygiene Patient Placed on Monitor/Pulse Ox: Yes During the Procedure: clinician is wearing sterile gloves, cap, mask,& gown during insertion, sterile field and sterile technique are maintained, patient's face is covered with drape or mask and wearing a cap, everyone in room is wearing a mask Central Line Prep: Chlorhexidine scrub Prep the Procedure Site: apply chloraprep to the skin using a back and forth scrubbing motion, apply chloraprep for 30 seconds (upper body), 1-2 min ( femoral sites), allow prep to dry, drape the patient with a full body drape Local Anesthetic: lidocaine 1% Ultrasound Used for Placement: Yes Central Line Lumen Inserted: triple Post Procedure: sutured in place, good blood return, all ports aspirated, flushed, capped, sterile dressing applied, guide wire removed and visualized Post Procedure X-Ray: tip of catheter in good position, no pneumothorax seen Patient Tolerated Procedure: well, no complications Complications: none Name of Clinician Inserting Central Line: Yue Clinician Assisting/Completing Checklist: Yue Date: 05/21/18 Time: 18:30 Medical Decision Making - Medical Records Medical records reviewed: Yes I reviewed the patient's medical records. - Lab Data Lab results reviewed: Yes I reviewed the patient's lab results. Result diagrams: 05/22/18 04:00 05/22/18 04:00 Lab Results 05/21/18 05/21/18 05/21/18 Range/Units 10:38 10:46 10:50 WBC (4.3-11.1) K/mcL RBC (3.82-4.97) M/mcL Hgb (11.5-15.4) g/dL Hct (35.3-44.9) % MCV (83.0-100.0) fL MCH (28.0-33.3) pg MCHC (31.6-35.5) g/dL RDW (11.5-14.5) % Plt Count (140-400) K/mcL MPV (9.4-12.4) fL Immature Gran % (0-4) % Seg Neutrophils % % Lymphocytes % % Monocytes % % Eosinophils % % Basophils % % Neutrophils # (1.6-8.9) K/mcL Lymphocytes # (0.6-4.6) K/mcL Monocytes # (0.0-1.3) K/mcL Eosinophils # (0.0-0.6) K/mcL Basophils # (0.0-0.2) K/mcL PT (9.4-12.1) Seconds INR APTT (26.0-36.0) Seconds D-Dimer (0-500) ng/mLFEU ABG pH 7.40 (7.32-7.45) pH Units ABG pCO2 39 (35-45) mmHg ABG pO2 88 (85-104) mmHg ABG HCO3 24 (21-27) mEq/L ABG Total CO2 26 (20-26) mEq/L ABG O2 Saturation 97 (95-98) % ABG Base Excess 0 (-2 to 3) mEq/L O2 Delivery Device Room Air Sodium (136-145) mEq/L Potassium (3.5-5.1) mEq/L Chloride (98-107) mEq/L Carbon Dioxide (23-29) mEq/L BUN (6-20) mg/dL Creatinine (0.60-1.20) mg/dL Est GFR ( Amer) (> 60) Est GFR (Non-Af Amer) (> 60) BUN/Creatinine Ratio (6-26) Glucose (70-105) mg/dL Calculated Osmolality (280-300) Lactic Acid (0.5-2.2) mmol/L Calcium (8.6-10.3) mg/dL Phosphorus (2.7-4.5) mg/dL Magnesium (1.6-2.6) mg/dL Total Bilirubin (0.3-1.0) mg/dL Direct Bilirubin (0.0-0.2) mg/dL Indirect Bilirubin (0.0-1.2) mg/dL AST (13-39) Units/L ALT (7-52) Units/L Alkaline Phosphatase (34-104) Units/L Troponin I (< 0.04) ng/mL Serum Total Protein (6.4-8.9) g/dL Albumin (3.5-5.7) g/dL Globulin (2.4-3.5) g/dL Albumin/Globulin Ratio (1.1-2.2) Ur Specimen Adequacy See below A Urine Color [place] A (Yellow) Urine Clarity Cloudy A (Clear) Urine pH 6.0 (5.0-8.0) pH Units Ur Specific [place] 1.029 H (1.010-1.025) Urine Protein Trace (Neg-Trace) mg/dL Urine Glucose (UA) Normal (Normal) mg/dL Urine Ketones Trace H (Negative) mg/dL Urine Blood Negative (Negative) Urine Nitrite Negative (Negative) Urine Bilirubin Small H (Negative) Urine Urobilinogen Normal (Normal) mg/dL Ur Leukocyte Esterase Small H (Negative) Urine Microscopic WBC 3-5 H (0-3) per hpf Ur Squamous Epith Cells Many H (None-Few) per lpf Calcium Oxalate Crystal Present Urine Bacteria Many H (None-Few) per hpf Urine Mucus Many H (Few) Ur Culture Indicated? NO. A (NO) Urine Test Negative (Negative) Urine Opiates Screen Ur Barbiturates Screen Ur Phencyclidine Scrn Ur Amphetamines Screen U Benzodiazepines Scrn Urine Cocaine Screen U Marijuana (THC) Screen Ur Drug Screen Interp 05/21/18 05/21/18 05/21/18 Range/Units 13:43 13:43 13:43 WBC 5.1 (4.3-11.1) K/mcL RBC 3.93 (3.82-4.97) M/mcL Hgb 9.6 L (11.5-15.4) g/dL Hct 30.7 L (35.3-44.9) % MCV 78.1 L (83.0-100.0) fL MCH 24.4 L (28.0-33.3) pg MCHC 31.3 L (31.6-35.5) g/dL RDW 14.7 H (11.5-14.5) % Plt Count 108 L (140-400) K/mcL MPV 10.1 (9.4-12.4) fL Immature Gran % 0.6 (0-4) % Seg Neutrophils % 68.4 % Lymphocytes % 25.9 % Monocytes % 4.9 % Eosinophils % 0.0 % Basophils % 0.2 % Neutrophils # 3.5 (1.6-8.9) K/mcL Lymphocytes # 1.3 (0.6-4.6) K/mcL Monocytes # 0.3 (0.0-1.3) K/mcL Eosinophils # 0.0 (0.0-0.6) K/mcL Basophils # 0.0 (0.0-0.2) K/mcL PT 13.7 H (9.4-12.1) Seconds INR 1.2 APTT 55.5 H (26.0-36.0) Seconds D-Dimer (0-500) ng/mLFEU ABG pH (7.32-7.45) pH Units ABG pCO2 (35-45) mmHg ABG pO2 (85-104) mmHg ABG HCO3 (21-27) mEq/L ABG Total CO2 (20-26) mEq/L ABG O2 Saturation (95-98) % ABG Base Excess (-2 to 3) mEq/L O2 Delivery Device Sodium 139 (136-145) mEq/L Potassium 3.6 (3.5-5.1) mEq/L Chloride 107 (98-107) mEq/L Carbon Dioxide 24 (23-29) mEq/L BUN 8 (6-20) mg/dL Creatinine 0.85 (0.60-1.20) mg/dL Est GFR ( Amer) > 60 (> 60) Est GFR (Non-Af Amer) > 60 (> 60) BUN/Creatinine Ratio 9 (6-26) Glucose 87 (70-105) mg/dL Calculated Osmolality 286 (280-300) Lactic Acid (0.5-2.2) mmol/L Calcium 8.9 (8.6-10.3) mg/dL Phosphorus 2.8 (2.7-4.5) mg/dL Magnesium 1.7 (1.6-2.6) mg/dL Total Bilirubin 0.4 (0.3-1.0) mg/dL Direct Bilirubin 0.0 (0.0-0.2) mg/dL Indirect Bilirubin 0.4 (0.0-1.2) mg/dL AST 11 L (13-39) Units/L ALT 9 (7-52) Units/L Alkaline Phosphatase 63 (34-104) Units/L Troponin I < 0.03 (< 0.04) ng/mL Serum Total Protein 6.6 (6.4-8.9) g/dL Albumin 4.0 (3.5-5.7) g/dL Globulin 2.6 (2.4-3.5) g/dL Albumin/Globulin Ratio 1.5 (1.1-2.2) Ur Specimen Adequacy Urine Color (Yellow) Urine Clarity (Clear) Urine pH (5.0-8.0) pH Units Ur Specific [place] (1.010-1.025) Urine Protein (Neg-Trace) mg/dL Urine Glucose (UA) (Normal) mg/dL Urine Ketones (Negative) mg/dL Urine Blood (Negative) Urine Nitrite (Negative) Urine Bilirubin (Negative) Urine Urobilinogen (Normal) mg/dL Ur Leukocyte Esterase (Negative) Urine Microscopic WBC (0-3) per hpf Ur Squamous Epith Cells (None-Few) per lpf Calcium Oxalate Crystal Urine Bacteria (None-Few) per hpf Urine Mucus (Few) Ur Culture Indicated? (NO) Urine Test (Negative) Urine Opiates Screen Ur Barbiturates Screen Ur Phencyclidine Scrn Ur Amphetamines Screen U Benzodiazepines Scrn Urine Cocaine Screen U Marijuana (THC) Screen Ur Drug Screen Interp 05/21/18 05/21/18 05/21/18 Range/Units 13:43 17:25 18:58 WBC (4.3-11.1) K/mcL RBC (3.82-4.97) M/mcL Hgb (11.5-15.4) g/dL Hct (35.3-44.9) % MCV (83.0-100.0) fL MCH (28.0-33.3) pg MCHC (31.6-35.5) g/dL RDW (11.5-14.5) % Plt Count (140-400) K/mcL MPV (9.4-12.4) fL Immature Gran % (0-4) % Seg Neutrophils % % Lymphocytes % % Monocytes % % Eosinophils % % Basophils % % Neutrophils # (1.6-8.9) K/mcL Lymphocytes # (0.6-4.6) K/mcL Monocytes # (0.0-1.3) K/mcL Eosinophils # (0.0-0.6) K/mcL Basophils # (0.0-0.2) K/mcL PT (9.4-12.1) Seconds INR APTT 50.4 H (26.0-36.0) Seconds D-Dimer 3118 H (0-500) ng/mLFEU ABG pH (7.32-7.45) pH Units ABG pCO2 (35-45) mmHg ABG pO2 (85-104) mmHg ABG HCO3 (21-27) mEq/L ABG Total CO2 (20-26) mEq/L ABG O2 Saturation (95-98) % ABG Base Excess (-2 to 3) mEq/L O2 Delivery Device Sodium (136-145) mEq/L Potassium (3.5-5.1) mEq/L Chloride (98-107) mEq/L Carbon Dioxide (23-29) mEq/L BUN (6-20) mg/dL Creatinine (0.60-1.20) mg/dL Est GFR ( Amer) (> 60) Est GFR (Non-Af Amer) (> 60) BUN/Creatinine Ratio (6-26) Glucose (70-105) mg/dL Calculated Osmolality (280-300) Lactic Acid 0.6 (0.5-2.2) mmol/L Calcium (8.6-10.3) mg/dL Phosphorus (2.7-4.5) mg/dL Magnesium (1.6-2.6) mg/dL Total Bilirubin (0.3-1.0) mg/dL Direct Bilirubin (0.0-0.2) mg/dL Indirect Bilirubin (0.0-1.2) mg/dL AST (13-39) Units/L ALT (7-52) Units/L Alkaline Phosphatase (34-104) Units/L Troponin I (< 0.04) ng/mL Serum Total Protein (6.4-8.9) g/dL Albumin (3.5-5.7) g/dL Globulin (2.4-3.5) g/dL Albumin/Globulin Ratio (1.1-2.2) Ur Specimen Adequacy Urine Color (Yellow) Urine Clarity (Clear) Urine pH (5.0-8.0) pH Units Ur Specific [place] (1.010-1.025) Urine Protein (Neg-Trace) mg/dL Urine Glucose (UA) (Normal) mg/dL Urine Ketones (Negative) mg/dL Urine Blood (Negative) Urine Nitrite (Negative) Urine Bilirubin (Negative) Urine Urobilinogen (Normal) mg/dL Ur Leukocyte Esterase (Negative) Urine Microscopic WBC (0-3) per hpf Ur Squamous Epith Cells (None-Few) per lpf Calcium Oxalate Crystal Urine Bacteria (None-Few) per hpf Urine Mucus (Few) Ur Culture Indicated? (NO) Urine Test (Negative) Urine Opiates Screen TNP Ur Barbiturates Screen TNP Ur Phencyclidine Scrn TNP Ur Amphetamines Screen TNP U Benzodiazepines Scrn TNP Urine Cocaine Screen TNP U Marijuana (THC) Screen TNP Ur Drug Screen Interp TNP - Radiology Data Radiology results reviewed: Yes I reviewed the patient's radiology results. Echocardiogram Limited Views 05/21/18 11:04 Impressions: Technically sub-optimal due to poor echocardiographic windows. Limited study. Doppler not utilized. LVEF 60%. Normal LV chamber size, wall thickness and function. Tricuspid valve not well visualized. In some views, there grossly appears to be a small mobile echodensity suggestive of vegetation. Recommend FORREST to further evaluate if clinically indicated. Findings discussed with Dr. Woodward. Left Ventricular Wall Motion: Rest Echo Findings All wall segments showed normal motion. Findings: Study Quality * Technically sub-optimal due to poor echocardiographic windows. ECG Findings * Normal sinus rhythm. Left Ventricle * LVEF 60%. * Normal LV chamber size, wall thickness and function. Right Ventricle * Normal right ventricular structure and function. Aorta * Normally sized aortic root. Pericardium * The pericardium appears normal. Aortic Valve * Aortic valve not well visualized. Mitral Valve * Normal mitral valve structure. Tricuspid Valve * Tricuspid valve not well visualized. In some views, there grossly appears to be a small mobile echodensity suggestive of vegetation. Pulmonic Valve * Pulmonic valve not well visualized. Chest X-Ray 05/21/18 19:08 IMPRESSION: No pneumothorax identified post central line placement. D/ / Armando Espitia MD / Armando Espitia MD Interpreting Provider: Armando Espitia MD - EKG Data EKG #1 EKG attestation: Yes I reviewed and interpreted this EKG. EKG results narrative: EKG done at 9:40 shows sinus tachycardia at a rate of 101. Normal axis. Normal intervals. Patient does have diffuse T-wave inversions which seemed to be more prominent when compared to prior EKG done on December 142017.
[2018-05-21 11:21] LABS: Bilirubin,Urine Small (Negative); Blood,Urine Negative (Negative); Color,Urine Orange (Yellow); Glucose,Urine (UA) Normal (Normal); Ketones,Urine Trace mg/dL (Negative); Leukocyte Esterase,Urine Small (Negative); Nitrite,Urine Negative (Negative); Protein,Urine Trace mg/dL (Neg-Trace); Specific Gravity,Urine 1.029 (1.010-1.025); Urobilinogen,Urine Normal (Normal)
[2018-05-21 11:22] LABS: Clarity,Urine Cloudy (Clear)
[2018-05-21 11:38] LABS: Calcium Oxalate Crystals,Urine Present; Mucus,Urine Many (Few); Squamous Epithelial Cell,Urine Many per lpf (None-Few)
[2018-05-21 11:39] LABS: Bacteria,Urine Many per hpf (None-Few)
[2018-05-21 14:04] LABS: Basophils % 0.2 %; Hematocrit 30.7 % (35.3-44.9); Hemoglobin 9.6 g/dL (11.5-15.4); Immature Granulocytes % 0.6 % (0-4); Lymphocytes # 1.3 K/mcL (0.6-4.6); Lymphocytes % 25.9 %; Mean Corpuscular HGB Conc 31.3 g/dL (31.6-35.5); Mean Corpuscular Hemoglobin 24.4 pg (28.0-33.3); Mean Corpuscular Volume 78.1 fL (83.0-100.0); Mean Platelet Volume 10.1 fL (9.4-12.4); Monocytes # 0.3 K/mcL (0.0-1.3); Monocytes % 4.9 %; Neutrophils # 3.5 K/mcL (1.6-8.9); Platelet Count 108 K/mcL (140-400); Red Blood Count 3.93 M/mcL (3.82-4.97); Red Cell Distribution Width 14.7 % (11.5-14.5); Segmented Neutrophils % 68.4 %
[2018-05-21 14:07] LABS: INR 1.2; Prothrombin Time 13.7 Seconds (9.4-12.1)
[2018-05-21 14:11] LABS: Activated Partial Thrombo Time 55.5 Seconds (26.0-36.0)
[2018-05-21 14:21] LABS: Alanine Aminotransferase 9 Units/L (7-52); Albumin/Globulin Ratio 1.5 (1.1-2.2); Alkaline Phosphatase 63 Units/L (34-104); Aspartate Amino Transferase 11 Units/L (13-39); BUN/Creatinine Ratio 9 (6-26); Bilirubin,Indirect 0.4 mg/dL (0.0-1.2); Bilirubin,Total 0.4 mg/dL (0.3-1.0); Blood Urea Nitrogen 8 mg/dL (6-20); Calcium 8.9 mg/dL (8.6-10.3); Carbon Dioxide 24 mEq/L (23-29); Chloride 107 mEq/L (98-107); Globulin 2.6 g/dL (2.4-3.5); Glucose 87 mg/dL (70-105); Magnesium 1.7 mg/dL (1.6-2.6); Osmolality,Calculated 286 (280-300); Phosphorous 2.8 mg/dL (2.7-4.5); Potassium 3.6 mEq/L (3.5-5.1); Sodium 139 mEq/L (136-145); Total Protein 6.6 g/dL (6.4-8.9); Troponin I < 0.03 ng/mL (< 0.04); eGFR For Non-African Americans > 60 (> 60)
[2018-05-21] MEDS ORDERED: Ondansetron 4 MG/2 ML VIAL IVP ONE ×2 (15:44→17:54)
[2018-05-21] MEDS ORDERED: 0.9 % Sodium Chloride 1,000 ML IVC ONE (15:47)
[2018-05-21] MEDS ORDERED: *HR* HYDROmorphone (PF) 1 MG/ML SYRINGE IVP ONE ×2 (15:54→18:28)
[2018-05-21] MEDS ORDERED: Isovue-370 500 ML INFUS..BTL IV ONE (16:53)
--- NOTE | 2018-05-21 17:23 | Internal Med History&Physical ---
Date of Encounter: 05/21/18 Time of Encounter: 17:45 Internal Medicine - H&P: HPI Chief complaint: chest pain Admitted From: Home History of present illness: Ms. 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 Per patient: about 3 months ago, she was visiting family and was having extreme chest pain and vomiting blood, she was admitted at that time for PE. 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 She was transferred to [facility] where she was found to have endocarditis. She has 2 large vegetations and a thrombus. She was transferred to [facility] for possible heart valve replacement where they decided to try antibiotics and was hospitalized for 35 days. She was sent home with Vanco and Clindamyin for 2 weeks. She stopped taking the antibiotics about 4 weeks ago. About 4 days ago began throwing up with coffee ground emesis, fevers 102-104 ( oral), and sweating. She has thrown up about 12 times and started with dark brown emesis. She has coughed up some blood but believes this occur after emesis so thinks that it is not from her lungs. This morning around 3AM began having chest pain and SOB. She called infectious disease at [facility] this morning and they said to go into the hospital. Chest pain sharp, consistent located on the left side. She admits to palpations, vomiting. Has not been able to keep anything down. She is able to take sips of water. She has noticed red tinge urine. She can take Tylenol but Motrin causes Hives. Denies IVDU, alcohol. Denies stick neck, burning with urination. Upon arrival to the ED, vitals were wnl except for elevated HR to 112. Labs significant for Hgb 9.6, platelet count 108, Blood cultures were obtained. EKG showing sinus tachycardia with a rate of 112 and some T-wave inversion anteriorly laterally. CXR showed no acute proce. Echo (TTE) showed EF 60% and tricuspid was not well visualized but possible small mobile echodensity suggestive of vegetation. Patient was given 1L bolus, dilaudid, Zosyn and vancomycin. Patient refused CTA scan. She was admitted to the floor for chest pain. Past Med Surg Social Fam HX - Past Medical History Medical history: asthma, pulmonary embolus, thyroid disease, other Additional medical history: blood clot disorder Psychiatric history: no psych history - Past Surgical History Surgical History: , orthopedic, other (right foot), IVC filter Additional surgical history: Tonsils/ Adnoids, Port plament/removal. - Social History Smoking Status: Never smoker Smokeless Tobacco Status: No Alcohol use: none Drug use: none Occupational status: student - Family History Mother Living Status: Still Living Hx Family Cardiac Disorders: Yes (CVA, HTN) Father Living Status: Still Living Hx Family Cardiac Disorders: Yes Internal Medicine - H&P: Meds Albuterol Sulfate [Albuterol Inhaler] 2 puff IH Q6HR PRN 03/18/17 [History] Quetiapine Fumarate [Seroquel] 1,200 mg PO HS 03/18/17 [History] Warfarin [Coumadin] 10 mg PO DAILY 03/18/17 [History] Zolpidem [Ambien] 10 mg PO HS 03/18/17 [History] Levothyroxine [Levothyroxine Sodium] 137 mcg PO DAILY 05/21/18 [History] Sertraline [Zoloft] 150 mg PO DAILY 05/21/18 [History] 3 Allergy/AdvReac Type Severity Reaction Status Date / Time Enoxaparin [From Lovenox] Allergy Rash Verified 05/21/18 09:22 fentanyl Allergy Itching Verified 05/21/18 09:22 fondaparinux [From Arixtra] Allergy Anaphylaxis Verified 05/21/18 09:22 hydrocodone Allergy Anaphylaxis Verified 05/21/18 09:22 ketorolac [From Toradol] Allergy Anaphylaxis Verified 05/21/18 09:22 Oxycodone Allergy Anaphylaxis Verified 05/21/18 09:22 tramadol Allergy Anaphylaxis Verified 05/21/18 09:22 All Systems PM: A 10-system review of systems was performed and is negative for pertinent findings except as documented above in the HPI. - Constitutional Constitutional: as per HPI - Constitutional Vitals: Temp Pulse Resp BP Pulse Ox 98 F 102 18 147/11 99 05/21/18 09:32 05/21/18 09:32 05/21/18 09:32 05/21/18 09:32 05/21/18 09:32 Exam: Constitutional: Alert, in no acute distress Head: Normocephalic, atraumatic Heart: Normal, regular rate and rhythm, no murmurs Lungs: Clear to auscultation, no wheezes, rales, or rhonchi Abdomen: Soft, nondistended, nontender, no guarding or rigidity. Extremities: blanchable, wheels bilaterally on LEs, No edema, No clubbing, radial pulse +2/4, capillary refill <2sec. Skin: Skin warm and dry, no jaundice Neurologic: answering questions appropriately, strength 5/5 in all extremities Psych: Cooperative with exam, good eye contact, cognitive function intact, speech clear, thought process logical, and goal directed Internal Med - H&P Results - Labs CBC & Chem 7: 05/21/18 13:43 05/21/18 13:43 Labs: Short CBC 05/21/18 Range/Units 13:43 WBC 5.1 (4.3-11.1) K/mcL Hgb 9.6 L (11.5-15.4) g/dL Hct 30.7 L (35.3-44.9) % Plt Count 108 L (140-400) K/mcL Neutrophils # 3.5 (1.6-8.9) K/mcL BMP 05/21/18 13:43 Sodium 139 Potassium 3.6 Chloride 107 Carbon Dioxide 24 BUN 8 Creatinine 0.85 Glucose 87 Calcium 8.9 Cardiac Enzymes 05/21/18 Range/Units 13:43 Troponin I < 0.03 (< 0.04) ng/mL Liver Function 05/21/18 Range/Units 13:43 Total Bilirubin 0.4 (0.3-1.0) mg/dL Direct Bilirubin 0.0 (0.0-0.2) mg/dL AST 11 L (13-39) Units/L ALT 9 (7-52) Units/L Alkaline Phosphatase 63 (34-104) Units/L Albumin 4.0 (3.5-5.7) g/dL Urine 05/21/18 Range/Units 10:46 Urine Color [place] A (Yellow) Urine Clarity Cloudy A (Clear) Urine pH 6.0 (5.0-8.0) pH Units Ur Specific [place] 1.029 H (1.010-1.025) Urine Protein Trace (Neg-Trace) mg/dL Urine Glucose (UA) Normal (Normal) mg/dL - ABG Interpretation ABG results: 05/21/18 10:38 ABG pH 7.40 ABG pCO2 39 ABG pO2 88 ABG HCO3 24 ABG Total CO2 26 ABG O2 Saturation 97 ABG Base Excess 0 - Impressions ITS Impressions Chest X-Ray 05/21/18 10:05 IMPRESSION: No acute process. D/ / Joan Veliz MD / Joan Veliz MD Interpreting Provider: Joan Veliz MD Echocardiogram Limited Views 05/21/18 11:04 Impressions: Technically sub-optimal due to poor echocardiographic windows. Limited study. Doppler not utilized. LVEF 60%. Normal LV chamber size, wall thickness and function. Tricuspid valve not well visualized. In some views, there grossly appears to be a small mobile echodensity suggestive of vegetation. Recommend FORREST to further evaluate if clinically indicated. Findings discussed with Dr. [facility]. Left Ventricular Wall Motion: Rest Echo Findings All wall segments showed normal motion. Findings: Study Quality * Technically sub-optimal due to poor echocardiographic windows. ECG Findings * Normal sinus rhythm. Left Ventricle * LVEF 60%. * Normal LV chamber size, wall thickness and function. Right Ventricle * Normal right ventricular structure and function. Aorta * Normally sized aortic root. Pericardium * The pericardium appears normal. Aortic Valve * Aortic valve not well visualized. Mitral Valve * Normal mitral valve structure. Tricuspid Valve * Tricuspid valve not well visualized. In some views, there grossly appears to be a small mobile echodensity suggestive of vegetation. Pulmonic Valve * Pulmonic valve not well visualized. - Assessment and plan (1) Chest pain Current Visit: Yes Status: Acute Assessment and plan: Chest pain ddx includes pulmonary embolus, coronary artery disease, endocarditis , pneumonia, GERD, peptic ulcer. High high likelihood of pulmonary embolism as patient is tachycardic, significant past medical history of clots, and INR is subtherapeutic. Could also be endocarditis as patient has history of recent endocarditis and echo shows possible vegetations. Less likely CAD as patient has negative troponin and is young. Possible peptic ulcer/upper GI bleed as patient has had hemetemesis. Will not start agatraban due to hememesis as it is contraindicated. Plan: - Antibiotics: Zosyn and Vanco (day 1) - continue cardiac monitoring - cont. trending troponin - VQ scan in the AM - consult: cardiology, ID, and hematology - omeprazole 40mg IV BID Qualifiers: Chest pain type: other chest pain Qualified Code(s): R07.89 - Other chest pain; R07.8 - Other chest pain (2) Nausea Current Visit: Yes Status: Acute Assessment and plan: Continue Zofran 4mg Q8H. Carafate. (3) Anemia Current Visit: No Status: Acute Assessment and plan: Chronically low with a hemoglobin around 9.0. Therefore most likely no acute drop in hemaglobin. Qualifiers: Anemia type: unspecified type Qualified Code(s): D64.9 - Anemia, unspecified (4) Subtherapeutic anticoagulation Current Visit: No Status: Acute Assessment and plan: INR= 1.2. Can not start anticoaguation at this point due to hemetemesis. Consulted Hematology. (5) Antiphospholipid antibody syndrome Current Visit: No Status: Chronic (6) History of pulmonary embolus (PE) Current Visit: No Status: Acute Assessment and plan: IVC filter place. Will work on getting INR therapeutic after r/o GI bleed. - Time Spent With Patient Total time spent is greater than 50% in coordination of care (as documented) at patient's floor/unit and/or counseling patient:
[2018-05-21] MEDS ORDERED: Acetaminophen 325 MG TABLET PO PRN (18:40)
--- NOTE | 2018-05-21 19:15 | Event Note ---
Date of Encounter: 05/21/18 Time of Encounter: 06:00 I saw and examined this pt independently. I have discussed with resident physician Dr Geiger regarding the management plan. Please refer her H&P for details. Pt present to ER for chest pain for 2 days. Pt state she has fever at home. Hx of recent endocarditis and just finished Abx weeks ago. Pt also has hx of antiphospholipid syndrome, hx of DVT and PE and on coumadin now. Pt said she has Hx of HIT and cannot use heparin or lovenox for bridge, Her INR is 1.2 today. Suspect endocarditis considering hx of endocarditis and pt has fever. However, PE is not excluded as pt has severe chest pain. Pt clearly refuse CTA as she "received too much radiation". She said she can accept V/Q scan. Will cont vanco/zosyn for possible endocarditis. Blood culture drawn in ER. Will consult ID and Cardio for further management. Regarding anticoagulation, I consulted hematology Dr Samson. As pt refuse CTA now , will check D-Dimer stat, if D-Dimer negative, the possibilty of new thrombosis is low, will cont coumadin to reach therapeutic INR level, and no bridging needed. If D-Dimer positive, will start argantroban drip for bridging. D-Dimer test placed. Will sign out to power and recovery shift engineer to follow.
[2018-05-21] MEDS ORDERED: Naloxone 0.4 MG/ML INJ IVP PRN (19:26)
[2018-05-21] MEDS ORDERED: *HR* Warfarin 10 MG TABLET PO ONE (19:30)
[2018-05-21] MEDS ORDERED: Ondansetron 4 MG/2 ML VIAL IVP PRN (19:45)
[2018-05-21] MEDS ORDERED: Argatroban 250 MG in D5% in Water 250 ML IVC SCH (19:45)
[2018-05-21] MEDS ORDERED: Vancomycin 1,750 MG in 0.9 % Sodium Chloride 250 ML IVPB SCH (20:00)
[2018-05-21 20:02] LABS: Activated Partial Thrombo Time 50.4 Seconds (26.0-36.0)
[2018-05-21 20:11] LABS: Cannabinoid Screen,Urine Negative ng/mL (Cutoff = 50)
[2018-05-21 20:12] LABS: Amphetamine Screen,Urine Negative ng/mL (Cutoff=1000); Barbiturate Screen,Urine Negative ng/mL (Cutoff=200); Benzodiazepines Screen,Urine Positive ng/mL (Cutoff=200); Cocaine Screen,Urine Negative ng/mL (Cutoff= 300); Opiate Screen,Urine Positive ng/mL (Cutoff=300); Phencyclidine Screen,Urine Negative ng/mL (Cutoff=25)
[2018-05-21] MEDS: *HR* Morphine 2 MG/ML SYRINGE IVP PRN (22:37)
[2018-05-21] MEDS: Piperacillin/Tazobactam 3.375 GM in 0.9 % Sodium Chloride Mini Bag 100 ML IVPB SCH (22:39)
[2018-05-21] MEDS: Sucralfate 1 GM TABLET PO SCH (22:41)
[2018-05-22] MEDS ORDERED: GI Cocktail 40 ML EACH PO ONE (04:00)
[2018-05-22 04:31] LABS: Basophils % 0.2 %; Eosinophils % 0.2 %; Hemoglobin 9.7 g/dL (11.5-15.4); Immature Granulocytes % 0.8 % (0-4); Lymphocytes # 1.4 K/mcL (0.6-4.6); Lymphocytes % 21.7 %; Mean Corpuscular HGB Conc 31.3 g/dL (31.6-35.5); Mean Corpuscular Hemoglobin 24.7 pg (28.0-33.3); Mean Corpuscular Volume 79.1 fL (83.0-100.0); Mean Platelet Volume 10.4 fL (9.4-12.4); Monocytes # 0.3 K/mcL (0.0-1.3); Monocytes % 4.2 %; Neutrophils # 4.5 K/mcL (1.6-8.9); Platelet Count 122 K/mcL (140-400); Red Blood Count 3.92 M/mcL (3.82-4.97); Red Cell Distribution Width 14.7 % (11.5-14.5); Segmented Neutrophils % 72.9 %
[2018-05-22] MEDS: *HR* Morphine 2 MG/ML SYRINGE IVP PRN ×2 (04:37→11:02)
[2018-05-22] MEDS: Piperacillin/Tazobactam 3.375 GM in 0.9 % Sodium Chloride Mini Bag 100 ML IVPB SCH ×2 (04:37→13:33)
[2018-05-22 04:47] LABS: BUN/Creatinine Ratio 9 (6-26); Blood Urea Nitrogen 9 mg/dL (6-20); Calcium 8.8 mg/dL (8.6-10.3); Carbon Dioxide 26 mEq/L (23-29); Chloride 108 mEq/L (98-107); Glucose 96 mg/dL (70-105); Osmolality,Calculated 287 (280-300); Potassium 3.7 mEq/L (3.5-5.1); Sodium 139 mEq/L (136-145); eGFR For Non-African Americans > 60 (> 60)
[2018-05-22] MEDS ORDERED: Pantoprazole 40 MG VIAL IVP SCH (06:00)
[2018-05-22 06:56] LABS: INR 1.2; Prothrombin Time 13.3 Seconds (9.4-12.1)
--- NOTE | 2018-05-22 08:06 | Cardiology Consult Note ---
Date of Encounter: 05/22/18 Time of Encounter: 09:21 Assessment and Plan (1) History of pulmonary embolus (PE) Current Visit: Yes Status: Suspected (2) Chest pain Current Visit: Yes Status: Acute Qualifiers: Chest pain type: unspecified Qualified Code(s): R07.9 - Chest pain, unspecified (3) Endocarditis Current Visit: Yes Status: Suspected Qualifiers: Endocarditis type: infective Infective endocarditis organism: unspecified organism Chronicity: unspecified Qualified Code(s): I33.0 - Acute and subacute infective endocarditis Discussion w patient/family: Ddx includes endocarditis and PE. Blood cultures drawn in ED pending. Pt currently on Vanc and Zosyn while awaiting culture results. TTE did not show any definitive vegetations. V/Q scan did not definitively show a PE. Would recommend a CTA to further rule out PE. Recommendations are to trend WBC and await blood cultures. Also track patient's temperature. Not recommended to do a FORREST at this point as the vegetations may be left over from her previous episode of endocarditis. If blood cultures return positive, then consider a FORREST to see if the vegetations are large enough that valve replacement would become necessary. If the vegetations are large or on both sides of the valves, consider Libman-Sacks endocarditis with the patients history of SLE. The assessment and plan as outlined above was discussed with the patient and/or family members who expressed understanding and agreement. All questions were answered. Thank you for involving us in the care of your patient. Please call with any questions. History of Present Illness Consult date: 05/21/18 Requesting physician: Venessa Geiger Consult reason: possible endocarditis Chief complaint: chest pain History of present illness: Ms. Altamirano is a 22 year old female with PMHx of lupus, endocarditis, and antiphospholipid antibody syndrome with PE who presented to the ED last night with chest pain and fevers. She was undergoing treatment at the [facility] for endocarditis and states she finished an 8 week course of Vancomycin. She states they discussed doing open heart surgery to remove the vegetations as "they were too large to go away with antibiotics alone." She was supposed to have a follow up FORREST once discharged from the [facility] but did not schedule a follow up appointment. Over the past 4 days she has been having fevers and left sided chest pain, with Tmax being 101.4F at home but has been afebrile since presentation to the ED. She states the pain wraps around the left side of her chest into her back, and hurts worse if she lays down flat. Currently she is having right sided chest pain as well. She states this feels similar to when she was diagnosed with endocarditis before. She is not currently on any medication for her lupus, but takes warfarin daily for anticoagulation as it was found that she had a clot in her heart 3 months ago. She has also developed a rash since admission that they have been treating with IV benadryl. She is on Zosyn and Vanc until blood cultures return. Past Med Surg Social Fam HX - Past Medical History Medical history: asthma, pulmonary embolus, thyroid disease, other Additional medical history: blood clot disorder Psychiatric history: no psych history - Past Surgical History Surgical History: , orthopedic, other, IVC filter Additional surgical history: Tonsils/ Adnoids, Port plament/removal. - Social History Smoking Status: Never smoker Smokeless Tobacco Status: No Alcohol use: none Drug use: none - Family History Mother Living Status: Still Living Hx Family Cardiac Disorders: Yes (Stroke, Brain Aneryusm) Hx Family Respiratory Disorders: No Hx Family Cancer: No Hx Family GI Disorders: No Hx Family Genitourinary Disorders: No Hx Family Endocrine Disorder: No Hx Family Musculoskeletal Disorders: No Hx Family Neuromuscular Disorders: No Hx Family Neurologic Disorders: No Hx Family HEENT Disorders: No Hx Family Autoimmune Disorders: No Hx Family Reproductive Disorders: No Hx Family Psychosocial Disorders: No Hx Family Medical Disorders: No Father Living Status: Still Living Hx Family Cardiac Disorders: No Hx Family Respiratory Disorders: No Hx Family Cancer: No Hx Family GI Disorders: No Hx Family Genitourinary Disorders: No Hx Family Endocrine Disorder: No Hx Family Musculoskeletal Disorders: No Hx Family Neuromuscular Disorders: No Hx Family Neurologic Disorders: No Hx Family HEENT Disorders: No Hx Family Autoimmune Disorders: No Hx Family Reproductive Disorders: No Hx Family Psychosocial Disorders: No Hx Family Medical Disorders: No Medications and Allergies Albuterol Sulfate [Albuterol Inhaler] 2 puff IH Q6HR PRN 03/18/17 [History] Quetiapine Fumarate [Seroquel] 800 mg PO HS 03/18/17 [History] Warfarin [Coumadin] 10 mg PO DAILY 03/18/17 [History] Zolpidem [Ambien] 10 mg PO HS 03/18/17 [History] Levothyroxine [Levothyroxine Sodium] 137 mcg PO DAILY 05/21/18 [History] Sertraline [Zoloft] 150 mg PO DAILY 05/21/18 [History] 3 Allergy/AdvReac Type Severity Reaction Status Date / Time Enoxaparin [From Lovenox] Allergy Rash Verified 05/21/18 09:22 fentanyl Allergy Itching Verified 05/21/18 09:22 fondaparinux [From Arixtra] Allergy Anaphylaxis Verified 05/21/18 09:22 hydrocodone Allergy Anaphylaxis Verified 05/21/18 09:22 ketorolac [From Toradol] Allergy Anaphylaxis Verified 05/21/18 09:22 Oxycodone Allergy Anaphylaxis Verified 05/21/18 09:22 tramadol Allergy Anaphylaxis Verified 05/21/18 09:22 All Systems Review: The remainder of the systems were reviewed and are negative - Constitutional Constitutional: fever(s), headache(s) - EENT Eyes: no blurred vision, no loss of vision Nose, mouth and throat: no epistaxis, no sore throat - Cardiovascular Cardiovascular: chest pain at rest, chest pain with exertion, palpitations, no dyspnea at rest, no dyspnea on exertion, no irregular heart rhythm, no leg edema , no syncope - Respiratory Respiratory: no cough, no dyspnea, no wheezing - Gastrointestinal Gastrointestinal: hematemesis (two episodes of red streaked emesis over past 2 days), nausea, no abdominal pain, no constipation, no diarrhea - Genitourinary Genitourinary: no dysuria, no hematuria - Musculoskeletal Musculoskeletal: no muscle cramps, no muscle weakness - Integumentary Integumentary: rash (developed last night), no erythema, no unusual bruising - Neurological Neurological: no dizziness, no loss of vision, no memory loss, no numbness Physical Examination Vital Signs, Last 4 Hours Temp Pulse Resp BP Pulse Ox 05/22/18 05:08 98.1 F 105 16 111/64 96 General: Conversant, No Apparent Distress HEENT: Atraumatic, Normocephaly, Mucus Membranes Moist Neck: No JVD, Normal carotid pulses Cardiac: Reg Rate and Rhythm, Normal S1 and S2, Other (grade 2 systolic murmur) Lungs: Normal Breath Sounds, No Wheeze, Rales, Rhonchi Neuro: Alert and responsive, No focal deficits noted Abdomen: Soft, Non-Tender Skin: Other (multiple circular erythematous raised areas that are clearly demarcated with central areas of clearing, blanches with pressure. Found on arms , legs and back.) Musculoskeletal: No Chest Wall Tenderness Extremities: No Cyanosis, No Edema, Normal Pulses Results 05/22/18 04:00 05/22/18 04:00 Lab Results 05/21/18 05/22/18 05/22/18 19:30 01:30 04:00 WBC 6.2 Hgb 9.7 L Hct 31.0 L Plt Count 122 L INR APTT Sodium Potassium Chloride Carbon Dioxide BUN Creatinine Glucose Calcium Troponin I < 0.03 < 0.03 05/22/18 05/22/18 05/22/18 04:00 06:30 06:31 WBC Hgb Hct Plt Count INR 1.2 APTT 61.5 H Sodium 139 Potassium 3.7 Chloride 108 H Carbon Dioxide 26 BUN 9 Creatinine 0.96 Glucose 96 Calcium 8.8 Troponin I Consult Discharge Plan - Plan Referrals: NONE,PCP [Primary Care Provider] -
[2018-05-22] MEDS: Sucralfate 1 GM TABLET PO SCH ×4 (09:51→21:07)
--- NOTE | 2018-05-22 10:27 | Internal Med Progress Note ---
<ElepricilaErnesto Ruth Ann - Last Filed: 05/22/18 14:31> Hospitalist Progress Note - Encounter Date of Encounter: 05/22/18 Time of Encounter: 10:16 - Subjective Interval History: Ms. 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 Today the pt says that she she is still having continued CP but states that her SOB has improved and says that she feels like her nausea is only secondary to the pain and reports that she has not had any vomiting since being admitted. She states that her appetite has returned. Pt reports that she she has now developed a rash on her abdomen and back but notes that the rash on her extremities have improved since yesterday. She denies any abd pain, fever, chills or any other sx at this time. Spoke with the pt at length about her previous h/o endocarditis and she denies any IVDU and says that she is a hard stick and when she had the PE previously they had to place a left IJ central line for IV access and this is where she contracted endocarditis. Pt reports that the endocarditis previously was caused by MRSA and Staph. The pt notes that she discontinued abx treatment for endocarditis approximately 4 weeks ago. - Exam Vitals: Temp Pulse Resp BP Pulse Ox 97.2 F L 97 17 127/76 98 05/22/18 07:58 05/22/18 07:58 05/22/18 07:58 05/22/18 07:58 05/22/18 07:58 Exam: Constitutional: Alert, in no acute distress Head: Normocephalic, atraumatic Heart: Normal, regular rate and rhythm, no murmurs, rubs or gallops Lungs: Clear to auscultation, no wheezes, rales, or rhonchi, no accessory muscle use or retractions Abdomen: Soft, nondistended, nontender, no guarding or rigidity. Extremities: blanchable, wheels bilaterally on LEs, No edema, No clubbing, radial pulse +2/4, capillary refill <2sec. Skin: Skin warm and dry, no jaundice, urticarial blanching patches to the upper abdomen and back Neurologic: answering questions appropriately, strength 5/5 in all extremities Psych: Cooperative with exam, good eye contact, cognitive function intact, speech clear, thought process logical, and goal directed - Assessment and Plan (1) Chest pain Current Visit: Yes Status: Acute Assessment and Plan: Possibly due to pleurisy given the nonspecific left sided chest wall pain that is exacerbated with inspiration but lacks reproducible chest wall tenderness or GERD as other causes have become less likely (see reasoning below). Patient also has been asking for morphine frequently with 2 prior ED visits where she demanded dilaudid and then left AMA. Suspicious of secondary gain but will need to r/o other causes for chest pain. Less likely peptic ulcer/upper GI bleed as patient has had no evidence of hematemesis here, stable H/H, no melena. Less likely pulmonary embolism as patient has a normal HR, no hypoxyia and VQ scan negative for recent PE, does have a significant past medical history of clots, and INR is subtherapeutic. She has an IVC filter. V/Q scan showed old PE in the right lung base and no other abnormalities. Could also be endocarditis as patient has history of recent endocarditis and echo shows possible vegetations, but less likely endocarditis is less likely based off of [place] Criteria: WBC normal, blood cultures negative x 1 day, no fever present during hospital stay. Less likely due to CAD as normal EKG and negative troponins. Less likely secondary to musculoskeletal causes given that the pt has no reproducible point tenderness with palpation of the chest wall or back. Will now start argatraban due to no evidence of hematemesis here, stable H/H, no melena. Will closely monitor H/H Q8H for bleeding. Plan: - start Argatraban, daily PTT - Q8H H/H for monitoring for bleeding - Antibiotics:Vanco (day 2), stop Zosyn due to hives, cultures pending - continue cardiac monitoring - VQ scan does not demonstrate any new abnormalities - daily labs: PT/INR, PTT, BMP, CBC - blood cultures pending - consult: cardiology states that the pt does not require the FORREST at this time and to trend WBC and await cultures and if positive then to repeat FORREST - consulted GI, awaiting recommendations - consult to heme, awaiting recommendations - pain: tylenol, morphine SL 2.5mg Q6H - stop omeprazole 40mg IV BID, start omeprazole 40mg PO - continue Carafate - diet: regular, NPO after midnight per GI (2) Nausea Current Visit: Yes Status: Acute Assessment and Plan: Pt reports that nausea has improved and no vomiting since being admitted. Continue Zofran 4mg Q8H PRN. Carafate (3) Antiphospholipid antibody syndrome Current Visit: No Status: Chronic (4) Anemia Current Visit: No Status: Acute Assessment and Plan: Baseline hemoglobin around 9.0. Unknown cause, ddx: blood loss, iron deficiency. Plan: - hematology: Iron profile, Ferritin. (5) Subtherapeutic anticoagulation Current Visit: No Status: Acute Assessment and Plan: INR= 1.2. Will start argatroban. Daily PT, PTT, INR. Will continue Coumadin per pharmacy to dose. H/H Q8Hs for monitoring for bleeding. (6) History of pulmonary embolus (PE) Current Visit: Yes Status: Suspected Assessment and Plan: IVC filter place. Will work on getting INR therapeutic. (7) Hematemesis Current Visit: Yes Status: Suspected Assessment and Plan: Patient has not had any vomiting while in the hospital. No picture of hematemesis. BMP upon arrival was normal, not showing metabolic changes of someone who has not eaten in 4 days with severe vomiting and hematemesis. Hemoglobin stable. Plan: -GI consulted, appreciate recommendations. DVT Prophylaxis: Argatroban and Coumadin - Time Spent with Patient Total time spent is greater than 50% in coordination of care (as documented) at patient's floor/unit and/or counseling patient: Internal Medicine: Result - Labs CBC & Chem 7: 05/22/18 04:00 05/22/18 04:00 Labs: Short CBC 05/22/18 Range/Units 04:00 WBC 6.2 (4.3-11.1) K/mcL Hgb 9.7 L (11.5-15.4) g/dL Hct 31.0 L (35.3-44.9) % Plt Count 122 L (140-400) K/mcL Neutrophils # 4.5 (1.6-8.9) K/mcL BMP 05/22/18 04:00 Sodium 139 Potassium 3.7 Chloride 108 H Carbon Dioxide 26 BUN 9 Creatinine 0.96 Glucose 96 Calcium 8.8 Cardiac Enzymes 05/21/18 05/22/18 Range/Units 19:30 01:30 Troponin I < 0.03 < 0.03 (< 0.04) ng/mL - ABG Interpretation ABG results: ABG ABG pH 7.40 pH Units (7.32-7.45) 05/21/18 10:38 ABG pCO2 39 mmHg (35-45) 05/21/18 10:38 ABG pO2 88 mmHg (85-104) 05/21/18 10:38 ABG O2 Saturation 97 % (95-98) 05/21/18 10:38 PT/INR, D-dimer PT 13.3 Seconds (9.4-12.1) H 05/22/18 06:30 D-Dimer 3118 ng/mLFEU (0-500) H 05/21/18 18:58 - Impressions Impressions Pulmonary Perfusion Imaging 05/21/18 19:45 IMPRESSION: 1. Unmatched defect at the right lung base with similar appearance on the V/Q scan 09/11/2016, likely representing chronic pulmonary embolus, correlate with symptoms and history. 2. Diffusely diminished perfusion of the left lower lobe. This is an uncommon appearance of pulmonary embolism. CT PE study may be of benefit. D/ / Rosendo Mast MD / Rosendo Mast MD Interpreting Provider: Rosendo Mast MD Consult Discharge Plan - Plan Referrals: NONE,PCP [Primary Care Provider] - (talked with patient she is from [facility] and she isn't sure who takes her insurance so she doesnt have a pcp i told her she really needs to just call all of the offices and see and get one set up that it was very important to have a pcp) <Lisbeth Uriarte - Last Filed: 05/22/18 15:31> Hospitalist Progress Note - Encounter Date of Encounter: 05/22/18 - Exam Vitals: Temp Pulse Resp BP Pulse Ox 98.7 F 86 20 104/84 100 05/22/18 11:23 05/22/18 11:23 05/22/18 11:23 05/22/18 11:23 05/22/18 11:23 - Time Spent with Patient Total time spent is greater than 50% in coordination of care (as documented) at patient's floor/unit and/or counseling patient: Internal Medicine: Result - Labs CBC & Chem 7: 05/22/18 04:00 05/22/18 04:00 - ABG Interpretation ABG results: ABG ABG pH 7.40 pH Units (7.32-7.45) 05/21/18 10:38 ABG pCO2 39 mmHg (35-45) 05/21/18 10:38 ABG pO2 88 mmHg (85-104) 05/21/18 10:38 ABG O2 Saturation 97 % (95-98) 05/21/18 10:38 PT/INR, D-dimer PT 13.3 Seconds (9.4-12.1) H 05/22/18 06:30 D-Dimer 4502 ng/mLFEU (0-500) H 05/22/18 08:56 - Attending Attestation I have seen and examined this pt independently. I have discussed with resident physician Dr Geiger regarding the management plan. Agree with the documentation. <Ernesto Cox - Last Filed: 05/22/18 14:31> (1) Chest pain Qualifiers: Chest pain type: other chest pain Qualified Code(s): R07.89 - Other chest pain; R07.8 - Other chest pain (4) Anemia Qualifiers: Anemia type: unspecified type Qualified Code(s): D64.9 - Anemia, unspecified (7) Hematemesis Qualifiers: Nausea presence: with nausea Qualified Code(s): K92.0 - Hematemesis
--- NOTE | 2018-05-22 11:42 | Oncology Inp Consult Note ---
<Zia Kellogg - Last Filed: 05/22/18 17:43> Date of Encounter: 05/22/18 Time of Encounter: 11:34 Assessment and Plan (1) Antiphospholipid antibody syndrome Status: Chronic Assessment and plan: No evidence of acute clot. Recommend restarting Coumadin with a goal INR of 2- 3. Given the low likelihood on VQ scan and no signs and symptoms of acute venous thromboembolic disease we will discontinue Atrovent Coumadin. Discussed with patient recommended close outpatient follow-up for Coumadin monitoring. Patient follows with PCP in [place] and has a pending referral to geriatric case manager which she would like to continue to pursue. (2) History of pulmonary embolus (PE) Status: Suspected Assessment and plan: Continue Coumadin for antiphospholipid syndrome as above. (3) Deep vein thrombosis of lower extremity Status: Acute Assessment and plan: Diagnosed back in November. No signs and symptoms of new clot. Qualifiers: Affected thrombotic vein of extremity: popliteal Chronicity: unspecified Laterality: left Qualified Code(s): I82.432 - Acute embolism and thrombosis of left popliteal vein (4) Anemia Status: Acute Assessment and plan: Hemoglobin stable. No evidence of acute blood loss. Okay to restart anticoagulation. Further management per primary/GI. Qualifiers: Anemia type: unspecified type Qualified Code(s): D64.9 - Anemia, unspecified (5) Endocarditis Status: Suspected Assessment and plan: Further management per ID/primary. Qualifiers: Endocarditis type: infective Infective endocarditis organism: unspecified organism Chronicity: acute Qualified Code(s): I33.0 - Acute and subacute infective endocarditis - Data of Consult Patient: known to practice within the last 3 years Consult date: 05/22/18 Requesting Physician: Remedios Hardwick MD Primary Care Provider: PCP NONE - Consult Narrative Reason for consult: Anticoagulation management History of present illness: Ms. Altamirano is a 22 year old female with history of antiphospholipid syndrome, DVT/PE who presents with chest pain and shortness of breath. Patient states that she was recently treated for endocarditis including 8 weeks of IV antibiotics up in [place]. Patient states that she just completed these a week or so ago and 2 days prior to arrival had chest pain and shortness of breath. Patient also reports that she had several episodes of vomiting with what she describes as coffee ground emesis. Patient reports at this point her symptoms has resolved and has not vomited blood and 2 days. Patient reports she was diagnosed with antiphospholipid syndrome right after the of her child and reports that she has multiple DVTs and PEs since then. She denies history of arterial clots or miscarriages. Patient reports that she takes Coumadin 5 mg daily and has been taking her medication regularly although due to vomiting she has not been able to keep her medication down the last several days. She reports she has not had her INR checked in several weeks and no one is currently managing her anticoagulation. She reports she is in the process of changing primary care physicians and will have somebody to manage her Coumadin soon. She reports most recently diagnosed with a DVT in November at this facility. 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 Past Med Surg Social Fam HX - Past Medical History Medical history: asthma, pulmonary embolus, thyroid disease, other Additional medical history: blood clot disorder Psychiatric history: no psych history - Past Surgical History Surgical History: , orthopedic, other, IVC filter Additional surgical history: Tonsils/ Adnoids, Port plament/removal. - Social History Smoking Status: Never smoker Smokeless Tobacco Status: No Alcohol use: none Drug use: none - Family History Mother Living Status: Still Living Hx Family Cardiac Disorders: Yes (Stroke, Brain Aneryusm) Hx Family Respiratory Disorders: No Hx Family Cancer: No Hx Family GI Disorders: No Hx Family Genitourinary Disorders: No Hx Family Endocrine Disorder: No Hx Family Musculoskeletal Disorders: No Hx Family Neuromuscular Disorders: No Hx Family Neurologic Disorders: No Hx Family HEENT Disorders: No Hx Family Autoimmune Disorders: No Hx Family Reproductive Disorders: No Hx Family Psychosocial Disorders: No Hx Family Medical Disorders: No Father Living Status: Still Living Hx Family Cardiac Disorders: No Hx Family Respiratory Disorders: No Hx Family Cancer: No Hx Family GI Disorders: No Hx Family Genitourinary Disorders: No Hx Family Endocrine Disorder: No Hx Family Musculoskeletal Disorders: No Hx Family Neuromuscular Disorders: No Hx Family Neurologic Disorders: No Hx Family HEENT Disorders: No Hx Family Autoimmune Disorders: No Hx Family Reproductive Disorders: No Hx Family Psychosocial Disorders: No Hx Family Medical Disorders: No Medications and Allergies Albuterol Sulfate [Albuterol Inhaler] 2 puff IH Q6HR PRN 03/18/17 [History] Quetiapine Fumarate [Seroquel] 800 mg PO HS 03/18/17 [History] Warfarin [Coumadin] 10 mg PO DAILY 03/18/17 [History] Zolpidem [Ambien] 10 mg PO HS 03/18/17 [History] Levothyroxine [Levothyroxine Sodium] 137 mcg PO DAILY 05/21/18 [History] Sertraline [Zoloft] 150 mg PO DAILY 05/21/18 [History] 3 Allergy/AdvReac Type Severity Reaction Status Date / Time Enoxaparin [From Lovenox] Allergy Rash Verified 05/21/18 09:22 fentanyl Allergy Itching Verified 05/21/18 09:22 fondaparinux [From Arixtra] Allergy Anaphylaxis Verified 05/21/18 09:22 hydrocodone Allergy Anaphylaxis Verified 05/21/18 09:22 ketorolac [From Toradol] Allergy Anaphylaxis Verified 05/21/18 09:22 Oxycodone Allergy Anaphylaxis Verified 05/21/18 09:22 tramadol Allergy Anaphylaxis Verified 05/21/18 09:22 Review of systems: Patient refused to participate in ROS Oncology - Exam - Constitutional Vitals: Temp Pulse Resp BP Pulse Ox 98.7 F 86 20 104/84 100 05/22/18 11:23 05/22/18 11:23 05/22/18 11:23 05/22/18 11:23 05/22/18 11:23 General appearance: no acute distress - Head Head exam: Present: atraumatic, normal inspection, normocephalic - Eye Eye exam: Present: EOMI - ENT ENT exam: Present: mucous membranes moist - Neck Additional comments: Left IJ present with no bleeding or oozing noted at the site. - Respiratory Respiratory exam: Present: CTAB. Absent: rales, wheezes - Cardiovascular Cardiovascular exam: Present: RRR. Absent: tachycardia - GI/Abdominal GI/Abdominal exam: Present: soft. Absent: tenderness - Extremities Exam Extremities exam: Absent: pedal edema, tenderness - Neurological Exam Neurological exam: Present: alert, oriented X3 - Skin Skin exam: Present: dry, intact, warm Consult Discharge Plan - Plan Referrals: NONE,PCP [Primary Care Provider] - (talked with patient she is from [facility] and she isn't sure who takes her insurance so she doesnt have a pcp i told her she really needs to just call all of the offices and see and get one set up that it was very important to have a pcp) <SheridanDevante S - Last Filed: 05/22/18 22:09> Date of Encounter: 05/22/18 - Data of Consult Requesting Physician: Remedios Hardwick MD Primary Care Provider: PCP NONE - Consult Narrative History of present illness: Ms. Altamirano is a 22 year old female Oncology - Exam - Constitutional Vitals: Temp Pulse Resp BP Pulse Ox 97.9 F 98 17 118/66 100 05/22/18 16:19 05/22/18 16:19 05/22/18 16:19 05/22/18 16:19 05/22/18 18:03 Oncology - Results Labs: 3 05/22/18 05/22/18 21:15 15:41 Hgb 9.0 L 9.8 L Hct 28.9 L 30.3 L - Attending Attestation I have seen and examined Ms. Altamirano and agree with the resident's assessment. She is a 22-year-old woman who has a history of probable lupus anticoagulant with recurrent thrombosis. Her care has been fragmented and performed over multiple different hospital systems making a cohesive picture difficult to assemble. In either case, lifelong anticoagulation is indicated based off the history provided. She has no evidence of acute event during his hospital stay. I recommended discontinuation of argatroban and discharge to home as soon as deemed safe by hospitalist team. Coumadin will need to be titrated by her outpatient physician in [place]. She has hematology referral in [place] as well. We will sign off. Inpatient Charges Provider: Dr. Franklyn Swartz Consult Charges: [id number]
[2018-05-22] MEDS ORDERED: Argatroban 250 MG in D5% in Water 250 ML IVC SCH (13:15)
--- NOTE | 2018-05-22 13:50 | Gastroenterology Consult Note ---
<Zia Castro eLle - Last Filed: 05/22/18 13:48> Date of Encounter: 05/22/18 Time of Encounter: 10:30 - Assessment and plan (1) GI bleed Current Visit: No Status: Acute Assessment and plan: Concern for upper gi bleed due to coffee-ground emesis. Plan for EGD tomorrow to r/o esophagitis, gastritis, duodenitis, PUD, MW tear, or AVM. Keep patient NPO at midnight. Qualifiers: GI bleed type/associated pathology: unspecified gastrointestinal hemorrhage type Qualified Code(s): K92.2 - Gastrointestinal hemorrhage, unspecified (2) Anemia Current Visit: No Status: Acute Assessment and plan: Hgb 9.6 on admission and this AM Hgb 9.7. Continue to monitor CBC and transfuse PRBC as needed. Check iron studies and plan for EGD tomorrow. Keep patient NPO at midnight. Qualifiers: Anemia type: unspecified type Qualified Code(s): D64.9 - Anemia, unspecified - Time Spent With Patient Total time spent is greater than 50% in coordination of care (as documented) at patient's floor/unit and/or counseling patient: GI History of Present Illness - Data of Consult Patient: known to practice within the last 3 years Consult date: 05/22/18 Requesting Physician: Remedios Hardwick MD - Consult Narrative Reason for consult: Upper GI bleed History of present illness: Ms. 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 Per patient: about 3 months ago, she was visiting family and was having extreme chest pain and vomiting blood, she was admitted at that time for PE. 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 She was transferred to [place] where she was found to have endocarditis. She has 2 large vegetations and a thrombus. She was transferred to [facility] for possible heart valve replacement where they decided to try antibiotics and was hospitalized for 35 days. She was sent home with Vanco and Clindamyin for 2 weeks. She stopped taking the antibiotics about 4 weeks ago. About 4 days ago began having coffee ground emesis, fevers 102-104 (oral), and sweating. She has thrown up about 12 times and started with dark brown emesis. She denies any hematemesis, melena, or hematochezia. We were consulted to evlauate her upper GI bleed. On admission Hgb 9.6 with MCV 78.1 and this AM Hgb 9.7 with MCV 79.1. Procedures: EGD 03/19/2017 Dr. Melendez: Reflux esophagitis NSAIDs: None Anticoagulation: Coumadin Past Med Surg Social Fam HX - Past Medical History Medical history: asthma, pulmonary embolus, thyroid disease, other Additional medical history: blood clot disorder Psychiatric history: no psych history - Past Surgical History Surgical History: , orthopedic, other, IVC filter Additional surgical history: Tonsils/ Adnoids, Port plament/removal. - Social History Smoking Status: Never smoker Smokeless Tobacco Status: No Alcohol use: none Drug use: none - Family History Mother Living Status: Still Living Hx Family Cardiac Disorders: Yes (Stroke, Brain Aneryusm) Hx Family Respiratory Disorders: No Hx Family Cancer: No Hx Family GI Disorders: No Hx Family Genitourinary Disorders: No Hx Family Endocrine Disorder: No Hx Family Musculoskeletal Disorders: No Hx Family Neuromuscular Disorders: No Hx Family Neurologic Disorders: No Hx Family HEENT Disorders: No Hx Family Autoimmune Disorders: No Hx Family Reproductive Disorders: No Hx Family Psychosocial Disorders: No Hx Family Medical Disorders: No Father Living Status: Still Living Hx Family Cardiac Disorders: No Hx Family Respiratory Disorders: No Hx Family Cancer: No Hx Family GI Disorders: No Hx Family Genitourinary Disorders: No Hx Family Endocrine Disorder: No Hx Family Musculoskeletal Disorders: No Hx Family Neuromuscular Disorders: No Hx Family Neurologic Disorders: No Hx Family HEENT Disorders: No Hx Family Autoimmune Disorders: No Hx Family Reproductive Disorders: No Hx Family Psychosocial Disorders: No Hx Family Medical Disorders: No - Gastrointestinal Gastrointestinal: Present: as per HPI - Constitutional Constitutional: as per HPI - EENT Eyes: as per HPI Ears: Present: as per HPI Nose, mouth and throat: Present: as per HPI - Cardiovascular Cardiovascular ROS: Present: as per HPI - Respiratory Respiratory IM: Present: as per HPI - Genitourinary Genitourinary: Absent: change in color, Urinary frequency - Neurological ROS Neurological GI: Present: as per HPI - Hematologic/Lymphatic Hematologic/Lymphatic pediatric: Present: as per HPI - Musculoskeletal Musculoskeletal ROS GI: Present: as per HPI - Integumentary Integumentary GI: Present: as per HPI - Psychiatric ROS Psychiatric GI: Present: as per HPI - Endocrine Endocrine IM: Present: as per HPI - Constitutional Vitals: Temp Pulse Resp BP Pulse Ox 98.7 F 86 20 104/84 100 05/22/18 11:23 05/22/18 11:23 05/22/18 11:23 05/22/18 11:23 05/22/18 11:23 General appearance: Present: cooperative, A&O X 3, no acute distress, answers questions appropriately - Head Head exam: Present: atraumatic, normocephalic - Eye Eye exam: Present: normal appearance, sclera anicteric - ENT ENT exam: Present: mucous membranes dry - Neck Neck exam general surgery: Present: normal inspection, trachea midline - Respiratory Respiratory exam: Present: CTAB. Absent: rales, rhonchi - Cardiovascular Cardiovascular exam: Present: RRR, +S1, +S2 - GI/Abdominal GI/Abdominal exam: Present: soft, no peritoneal signs. Absent: distended, firm , guarding, tenderness - Rectal Rectal exam: Present: deferred - Extremities Exam Extremities exam: Present: warm - Neurological Exam Neurological exam: Present: no focal deficits - Psychiatric Psychiatric exam: Present: normal affect, normal mood - Skin Skin exam: Present: dry, intact, normal color, warm Results - Labs CBC & Chem 7: 05/22/18 04:00 05/22/18 04:00 Labs: Last Result Calcium 8.8 mg/dL (8.6-10.3) 05/22/18 04:00 Troponin I < 0.03 ng/mL (< 0.04) 05/22/18 01:30 Urine Opiates Screen Positive ng/mL (Kreojb=502) H 05/21/18 19:49 Entire Visit Hgb 9.7 g/dL (11.5-15.4) L 05/22/18 04:00 Hct 31.0 % (35.3-44.9) L 05/22/18 04:00 PT 13.3 Seconds (9.4-12.1) H 05/22/18 06:30 Total Bilirubin 0.4 mg/dL (0.3-1.0) 05/21/18 13:43 AST 11 Units/L (13-39) L 05/21/18 13:43 ALT 9 Units/L (7-52) 05/21/18 13:43 - ABG ABG results: ABG ABG pH 7.40 pH Units (7.32-7.45) 05/21/18 10:38 ABG pCO2 39 mmHg (35-45) 05/21/18 10:38 ABG pO2 88 mmHg (85-104) 05/21/18 10:38 ABG O2 Saturation 97 % (95-98) 05/21/18 10:38 PT/INR, D-dimer PT 13.3 Seconds (9.4-12.1) H 05/22/18 06:30 D-Dimer 4502 ng/mLFEU (0-500) H 05/22/18 08:56 Consult Discharge Plan - Plan Referrals: NONE,PCP [Primary Care Provider] - (talked with patient she is from [facility] and she isn't sure who takes her insurance so she doesnt have a pcp i told her she really needs to just call all of the offices and see and get one set up that it was very important to have a pcp) <Lopez Melendez - Last Filed: 05/22/18 16:35> Date of Encounter: 05/22/18 Time of Encounter: 12:00 - Time Spent With Patient Total time spent is greater than 50% in coordination of care (as documented) at patient's floor/unit and/or counseling patient: GI History of Present Illness - Data of Consult Requesting Physician: Remedios Hardwick MD - Consult Narrative History of present illness: Ms. Altamirano is a 22 year old female - Constitutional Vitals: Temp Pulse Resp BP Pulse Ox 97.9 F 98 17 118/66 100 05/22/18 16:19 05/22/18 16:19 05/22/18 16:19 05/22/18 16:19 05/22/18 11:23 Results - Labs CBC & Chem 7: 05/22/18 15:41 05/22/18 04:00 Labs: Last Result Calcium 8.8 mg/dL (8.6-10.3) 05/22/18 04:00 Iron 30 mcg/dL (50-170) L 05/22/18 04:00 % Saturation 8 % (15-50) L 05/22/18 04:00 Transferrin 264 mg/dL (203-362) 05/22/18 04:00 Ferritin 12 ng/mL (10-120) 05/22/18 04:00 Troponin I < 0.03 ng/mL (< 0.04) 05/22/18 01:30 Urine Opiates Screen Positive ng/mL (Vaetgx=932) H 05/21/18 19:49 Entire Visit Hgb 9.8 g/dL (11.5-15.4) L 05/22/18 15:41 Hct 30.3 % (35.3-44.9) L 05/22/18 15:41 PT 13.3 Seconds (9.4-12.1) H 05/22/18 06:30 Ferritin 12 ng/mL (10-120) 05/22/18 04:00 Total Bilirubin 0.4 mg/dL (0.3-1.0) 05/21/18 13:43 AST 11 Units/L (13-39) L 05/21/18 13:43 ALT 9 Units/L (7-52) 05/21/18 13:43 - ABG ABG results: ABG ABG pH 7.40 pH Units (7.32-7.45) 05/21/18 10:38 ABG pCO2 39 mmHg (35-45) 05/21/18 10:38 ABG pO2 88 mmHg (85-104) 05/21/18 10:38 ABG O2 Saturation 97 % (95-98) 05/21/18 10:38 PT/INR, D-dimer PT 13.3 Seconds (9.4-12.1) H 05/22/18 06:30 D-Dimer 4502 ng/mLFEU (0-500) H 05/22/18 08:56 - Attending Attestation I have personally performed a face to face evaluation on this patient. I have reviewed and agree with the care plan. History and Exam by me shows: Pt seen. No active issue, episode of coffee ground vomitting few days ago. No bleeding now. O/E AAO A; pt with multiple issues including Hx of infetcive endocarditis now with anemia bit no overt bleeding, h/H stable Rec: Follow H/H , no need for scope.If any further drop then will consider EGd
--- NOTE | 2018-05-22 13:55 | Event Note ---
Date of Encounter: 05/22/18 Time of Encounter: 12:00 Pt was suspected GI bleed and anticoagulation is on hold. Pt denies melana, vitals and H/H stable. D/W GI consult Dr Melendez, will closely monitor H/H and vitals, no EGD or any further test at this point. Will restart anticoagulation as pt has high risk for thrombus.
--- NOTE | 2018-05-22 14:32 | Infectious Disease Consult ---
Date of Encounter: 05/22/18 Time of Encounter: 14:32 Assessment and Plan (1) Antiphospholipid antibody syndrome Status: Chronic (2) History of pulmonary embolus (PE) Status: Suspected (3) Chest pain Status: Acute Assessment and plan: Appears to be pleuritic. I do not believe there is any association with endocarditis but I am concerned for possible septic emboli especially to the ribs or to the lung. Patient has refused CAT scans before because she does not want to be exposed to radiation I explained to her that we need to rule out septic emboli and we will get a CAT scan of the chest At this point patient has no major or minor [place] criteria Stop all antibiotics and observe and wait for the cultures to finalize Check rheumatoid factor If cultures are positive we will be happy to reevaluate Qualifiers: Chest pain type: unspecified Qualified Code(s): R07.9 - Chest pain, unspecified (4) Pleuritic chest pain Status: Acute (5) Endocarditis Status: Suspected Assessment and plan: History of endocarditis 3 months 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 valve Patient tells me likely to an infected central line in the right IJ Not sure how she was treated with which antibiotics and what bacteria grew We will do workup to rule out endocarditis including blood cultures 3 and all check rheumatoid factor Visit clinical exam not suggestive of endocarditis Qualifiers: Endocarditis type: infective Infective endocarditis organism: unspecified organism Chronicity: acute Qualified Code(s): I33.0 - Acute and subacute infective endocarditis Infectious Disease HPI - Data of Consult Patient: new to practice Consult date: 05/22/18 Requesting Physician: Remedios Hardwick MD Primary Care Provider: PCP NONE - Consult Narrative Reason for consult: endocarditis History of present illness: Ms. Altamirano is a 22 year old female Patient is a 22-year-old woman who presented to [facility] on 05/21/18 with chest pain , we are consult on 05/22 for possible endocarditis. Patient is an unfortunate 22-year-old woman who has antiphospholipid syndrome with multiple complications including DVTs, PEs and splenic infarct in the past currently on Coumadin and apparently had recent endocarditis with MRSA. Exact details of the endocarditis is not known. Patient Since admission, patient has been afebrile, tachycardic with a heart rate of about 110, and no tachypnea. Presenting labs revealed WBC of 5.1 with normal differential. Normal chemistries and LFTs. And a urinalysis that was not impressive. Blood cultures 2 obtained on 05/21 and are no growth to date. A chest x-ray was done and revealed no acute process. Patient was started on vancomycin and we were asked to evaluate the patient and make further recommendations. On further questioning patient tells me that about a few months ago maybe 3 months ago she was visiting her sister in the [place] area and she felt ill with chest pain and was taken to [facility] and then was transferred to [facility] where she was told she had endocarditis of the tricuspid valve leaflets. Patient does not know what antibiotics she was on and what bacteria grew. I asked her if she knew why she had endocarditis and she said she had a central line in her IJ. I asked her why she said because she was a hard stick. I am not sure really about how the Dificid, bowel. Patient was discharged home and she finished 8 weeks of IV antibiotics last week. Patient denies any fevers denies any chills denies any other complaints. All she has is pleuritic chest pain on the left chest that radiates to the back. While here patient took Vanco and Zosyn and the Zosyn gave her really bad hives. CC: Remedios Hardwick MD Past Med Surg Social Fam HX - Past Medical History Medical history: asthma, pulmonary embolus, thyroid disease, other Additional medical history: blood clot disorder Psychiatric history: no psych history - Past Surgical History Surgical History: , orthopedic, other, IVC filter Additional surgical history: Tonsils/ Adnoids, Port plament/removal. - Social History Smoking Status: Never smoker Smokeless Tobacco Status: No Alcohol use: none Drug use: none - Family History Mother Living Status: Still Living Hx Family Cardiac Disorders: Yes (Stroke, Brain Aneryusm) Hx Family Respiratory Disorders: No Hx Family Cancer: No Hx Family GI Disorders: No Hx Family Genitourinary Disorders: No Hx Family Endocrine Disorder: No Hx Family Musculoskeletal Disorders: No Hx Family Neuromuscular Disorders: No Hx Family Neurologic Disorders: No Hx Family HEENT Disorders: No Hx Family Autoimmune Disorders: No Hx Family Reproductive Disorders: No Hx Family Psychosocial Disorders: No Hx Family Medical Disorders: No Father Living Status: Still Living Hx Family Cardiac Disorders: No Hx Family Respiratory Disorders: No Hx Family Cancer: No Hx Family GI Disorders: No Hx Family Genitourinary Disorders: No Hx Family Endocrine Disorder: No Hx Family Musculoskeletal Disorders: No Hx Family Neuromuscular Disorders: No Hx Family Neurologic Disorders: No Hx Family HEENT Disorders: No Hx Family Autoimmune Disorders: No Hx Family Reproductive Disorders: No Hx Family Psychosocial Disorders: No Hx Family Medical Disorders: No Infectious Disease-CN:Meds Albuterol Sulfate [Albuterol Inhaler] 2 puff IH Q6HR PRN 03/18/17 [History] Quetiapine Fumarate [Seroquel] 800 mg PO HS 03/18/17 [History] Warfarin [Coumadin] 10 mg PO DAILY 03/18/17 [History] Zolpidem [Ambien] 10 mg PO HS 03/18/17 [History] Levothyroxine [Levothyroxine Sodium] 137 mcg PO DAILY 05/21/18 [History] Sertraline [Zoloft] 150 mg PO DAILY 05/21/18 [History] 3 Allergy/AdvReac Type Severity Reaction Status Date / Time Enoxaparin [From Lovenox] Allergy Rash Verified 05/21/18 09:22 fentanyl Allergy Itching Verified 05/21/18 09:22 fondaparinux [From Arixtra] Allergy Anaphylaxis Verified 05/21/18 09:22 hydrocodone Allergy Anaphylaxis Verified 05/21/18 09:22 ketorolac [From Toradol] Allergy Anaphylaxis Verified 05/21/18 09:22 Oxycodone Allergy Anaphylaxis Verified 05/21/18 09:22 tramadol Allergy Anaphylaxis Verified 05/21/18 09:22 Review of systems: 10 point review of systems done, negative other for what mentioned in history of present illness Exam - Constitutional Vitals: Temp Pulse Resp BP Pulse Ox 98.7 F 86 20 104/84 100 05/22/18 11:23 05/22/18 11:23 05/22/18 11:23 05/22/18 11:23 05/22/18 11:23 General appearance: no acute distress, no febrile - Head Head exam: Present: atraumatic, normocephalic - Eye Eye exam: Present: EOMI, PERRL Additional comments: No conjunctival hemorrhages noted - ENT ENT exam: Present: mucous membranes dry Additional comments: No oral lesions - Neck Neck exam: Present: full ROM. Absent: meningismus - Respiratory Respiratory exam: Present: CTAB. Absent: wheezes - Cardiovascular Cardiovascular exam: Present: RRR, +S1, +S2. Absent: systolic murmur - GI/Abdominal GI/Abdominal exam: Present: normal bowel sounds, soft. Absent: tenderness - Extremities Exam Extremities exam: Present: full ROM, normal inspection Additional comments: No joint effusion or swelling. - Back Exam Back exam: Present: normal inspection. Absent: vertebral tenderness - Neurological Exam Neurological exam: Present: alert, oriented X3, no focal deficits - Psychiatric Psychiatric exam: Present: normal affect, normal mood - Skin Additional comments: Diffuse rash which appears to be like an allergic reaction. No endocarditis stigmata [place] no genital lesion or ulcer noted Infectious Disease CN: Results - Labs CBC & Chem 7: 05/22/18 15:41 05/22/18 04:00 Consult Discharge Plan - Plan Referrals: NONE,PCP [Primary Care Provider] - (talked with patient she is from [facility] and she isn't sure who takes her insurance so she doesnt have a pcp i told her she really needs to just call all of the offices and see and get one set up that it was very important to have a pcp)
[2018-05-22] MEDS: MORPHINE SUL Oral CONC 10 MG/0.5 ML ORAL.SYG SL PRN ×2 (15:23→19:43)
[2018-05-22 15:31] LABS: % Iron Saturation 8 % (15-50); Iron 30 mcg/dL (50-170); Transferrin 264 mg/dL (203-362)
[2018-05-22 15:49] LABS: Ferritin 12 ng/mL (10-120)
[2018-05-22 15:52] LABS: Hematocrit 30.3 % (35.3-44.9); Hemoglobin 9.8 g/dL (11.5-15.4)
[2018-05-22] MEDS ORDERED: *HR* Warfarin 10 MG TABLET PO ONE (18:00)
[2018-05-22] MEDS ORDERED: Warfarin perPT PO PRN ×2 (18:00)
[2018-05-22 21:28] LABS: Hematocrit 28.9 % (35.3-44.9)
[2018-05-23] MEDS: MORPHINE SUL Oral CONC 10 MG/0.5 ML ORAL.SYG SL PRN ×2 (05:14→09:21)
[2018-05-23 05:38] LABS: Hematocrit 29.2 % (35.3-44.9); Hemoglobin 9.1 g/dL (11.5-15.4); Mean Corpuscular HGB Conc 31.2 g/dL (31.6-35.5); Mean Corpuscular Volume 80.2 fL (83.0-100.0); Mean Platelet Volume 9.9 fL (9.4-12.4); Platelet Count 102 K/mcL (140-400); Red Blood Count 3.64 M/mcL (3.82-4.97); Red Cell Distribution Width 14.6 % (11.5-14.5)
[2018-05-23 05:43] LABS: INR 1.1; Prothrombin Time 12.9 Seconds (9.4-12.1)
[2018-05-23 06:00] LABS: BUN/Creatinine Ratio 7 (6-26); Blood Urea Nitrogen 6 mg/dL (6-20); Calcium 8.5 mg/dL (8.6-10.3); Carbon Dioxide 26 mEq/L (23-29); Chloride 112 mEq/L (98-107); Glucose 106 mg/dL (70-105); Osmolality,Calculated 282 (280-300); Potassium 3.7 mEq/L (3.5-5.1); Sodium 137 mEq/L (136-145); eGFR For Non-African Americans > 60 (> 60)
[2018-05-23] MEDS: Sucralfate 1 GM TABLET PO SCH ×3 (08:58→17:58)
--- NOTE | 2018-05-23 10:52 | Internal Med Progress Note ---
Hospitalist Progress Note - Encounter Date of Encounter: 05/23/18 Time of Encounter: 09:00 - Subjective Interval History: Patient is sleeping when I saw her. When I asked her, she complained mild chest pain, she said that she has mild nausea but no vomiting. No fever. - Exam Vitals: Temp Pulse Resp BP Pulse Ox 98.6 F 91 18 136/90 94 05/23/18 06:55 05/23/18 06:55 05/23/18 06:55 05/23/18 06:55 05/23/18 06:55 Exam: Constitutional: Alert, in no acute distress Head: Normocephalic, atraumatic Heart: Normal, regular rate and rhythm, no murmurs, rubs or gallops Lungs: Clear to auscultation, no wheezes, rales, or rhonchi, no accessory muscle use or retractions Abdomen: Soft, nondistended, nontender, no guarding or rigidity. Extremities: blanchable, wheels bilaterally on LEs, No edema, No clubbing, radial pulse +2/4, capillary refill <2sec. Skin: Skin warm and dry, no jaundice, urticarial blanching patches to the upper abdomen and back Neurologic: answering questions appropriately, strength 5/5 in all extremities Psych: Cooperative with exam, good eye contact, cognitive function intact, speech clear, thought process logical, and goal directed - Assessment and Plan (1) Chest pain Current Visit: Yes Status: Acute Assessment and Plan: Patient complains of chest pain. She looks in no acute distress. Patient has documented drug seeking behavior in last hospitalization. Will continue as needed pain control but avoid give patient too much opioid. V/Q scan shows chronic PE. ID recommend CTA to rule out septic emboli, however, patient still refuses CTA. (2) Endocarditis Current Visit: Yes Status: Suspected Assessment and Plan: Patient states she has fever before going to ER. However, patient has no further fever in the emergency room and in the hospital. Patient said she has history of endocarditis. Continue empiric vancomycin. ID consult appreciated. Blood culture result is pending. (3) History of pulmonary embolus (PE) Current Visit: Yes Status: Suspected Assessment and Plan: Continue Coumadin. Oncology consult appreciated (4) Deep vein thrombosis of lower extremity Current Visit: No Status: Acute Assessment and Plan: History of DVT. No signs of new DVT. Continue Coumadin. Patient has IVC filter placed previously (5) Antiphospholipid antibody syndrome Current Visit: No Status: Chronic Assessment and Plan: Continue Coumadin. Compliance education. (6) Drug-seeking behavior Current Visit: No Status: Chronic Assessment and Plan: Patient still ask for more pain medication although she looks in no acute distress without signs of pain such as tachycardia, diaphoresis, high BP. Will closely monitor patient. (7) Medical non-compliance Current Visit: No Status: Chronic Assessment and Plan: Patient still refuses CTA. Highly suspected she is not compliant with Coumadin. Education for medication compliance has been done. DVT Prophylaxis: Continue coumadin to reach therapeutic level. - Time Spent with Patient Total time spent is greater than 50% in coordination of care (as documented) at patient's floor/unit and/or counseling patient: 30 minutes 25 - 35 minutes Internal Medicine: Result - Labs CBC & Chem 7: 05/23/18 04:00 05/23/18 04:00 Labs: Short CBC 05/22/18 05/22/18 05/23/18 Range/Units 15:41 21:15 04:00 WBC 3.3 L (4.3-11.1) K/mcL Hgb 9.8 L 9.0 L 9.1 L (11.5-15.4) g/dL Hct 30.3 L 28.9 L 29.2 L (35.3-44.9) % Plt Count 102 L (140-400) K/mcL BMP 05/23/18 04:00 Sodium 137 Potassium 3.7 Chloride 112 H Carbon Dioxide 26 BUN 6 Creatinine 0.81 Glucose 106 H Calcium 8.5 L - ABG Interpretation ABG results: ABG ABG pH 7.40 pH Units (7.32-7.45) 05/21/18 10:38 ABG pCO2 39 mmHg (35-45) 05/21/18 10:38 ABG pO2 88 mmHg (85-104) 05/21/18 10:38 ABG O2 Saturation 97 % (95-98) 05/21/18 10:38 PT/INR, D-dimer PT 12.9 Seconds (9.4-12.1) H 05/23/18 04:00 D-Dimer 4502 ng/mLFEU (0-500) H 05/22/18 08:56 Consult Discharge Plan - Plan Referrals: NONE,PCP [Primary Care Provider] - (talked with patient she is from [facility] and she isn't sure who takes her insurance so she doesnt have a pcp i told her she really needs to just call all of the offices and see and get one set up that it was very important to have a pcp) (1) Chest pain Qualifiers: Chest pain type: unspecified Qualified Code(s): R07.9 - Chest pain, unspecified (2) Endocarditis Qualifiers: Endocarditis type: infective Infective endocarditis organism: unspecified organism Chronicity: acute Qualified Code(s): I33.0 - Acute and subacute infective endocarditis (4) Deep vein thrombosis of lower extremity Qualifiers: Affected thrombotic vein of extremity: popliteal Chronicity: unspecified Laterality: left Qualified Code(s): I82.432 - Acute embolism and thrombosis of left popliteal vein
[2018-05-23] MEDS: MORPHINE SUL Oral CONC 10 MG/0.5 ML ORAL.SYG PO PRN ×2 (13:32→18:13)
[2018-05-23 14:06] LABS: Hematocrit 30.9 % (35.3-44.9); Hemoglobin 9.7 g/dL (11.5-15.4)
[2018-05-23 16:05] VITALS: BP 105/55
[2018-05-23] MEDS ORDERED: *HR* Warfarin 10 MG TABLET PO ONE (18:00)
[2018-05-23] MEDS ORDERED: Aminoglycoside Consult 1 EACH MC ONE (18:59)
--- NOTE | 2018-05-25 12:43 | Electrocardiograph Report ---
[place] [id number] Test Date: 2018-05-21 Pat Name: Nika Altamirano Department: EXAM8 Room: 2NE30 Gender: F Pressfitter: : 1995 Requested By: Duarte Woodward Order Number: [id number] Reading MD: Bryan Mackey Measurements Intervals [place] Rate: 101 P: 37 CT: 145 QRS: 19 QRSD: 94 T: 161 QT: 328 QTc: 426 Interpretive Statements Sinus tachycardia Nonspecific T abnormalities, diffuse leads Electronically Signed On 05-25-2018 12:41:20 EDT by Bryan Mackey
== END 2018-05-23 19:00 | disposition left against medical advice (07) | DRG 204 ==
LOC: 2NENU 09:17 → EMEROOARM 09:17 → 2NENU 20:45
PROVIDERS: ADMIT Student in an Organized Health Care Education/Training Program; ATTEND Student in an Organized Health Care Education/Training Program